=== PATIENT | female | born 1945 | race Caucasian/White ===

== ENCOUNTER 2017-06-05 16:23 | Observation (INO) | payer MEDICARE, BC ==
[2017-06-05] MEDS ORDERED: ANTIVERT 25 MG PO ONE (16:52)
[2017-06-05] MEDS ORDERED: ANTIVERT 25 MG ONE (16:59)
--- NOTE | 2017-06-05 16:59 | ERPHSYRPT ---
- History of Present Illness Time Seen by Provider: 06/05/17 16:46 Source: patient Exam Limitations: no limitations Patient Subjective Stated Complaint: pt states 2 days ago she began having dizziness. states she has had this before at times. worse today. dizzy from side to side. better with head in dependent position. Triage Nursing Assessment: pt pink, warm, dry. pt able to transfer to Er cot without difficulty. pupils perrl. pt speach wnl. Physician History: 71-year-old white female arrives with complaint of ringing in her ears vertigo symptoms worse with turning her head symptoms going on for 2 days. Patient states it began after having tooth removed by a dentist. Past medical history includes high blood pressure GERD. Past surgical history includes CABG and knee replacement carpal tunnel. Timing/Duration: day(s) (2 days) Severity: moderate Modifying Factors: Improves With: movement (symptoms much worse after moving her head). Worsens With: eating, immobilization, medication, rest, acetaminophen, ibuprofen, nothing Associated Symptoms: other (Dizziness, vertigo, tinnitus), No nausea, No vomiting, No abdominal pain, No shortness of breath, No heartburn, No diaphoresis, No cough, No chills, No chest pain, No fever, No headaches, No loss of appetite, No malaise, No rash, No syncope, No seizure, No weakness Allergies/Adverse Reactions: tetracycline [Tetracycline] Allergy (Verified 06/05/17 16:44) ITCH, BURN Home Medications: Amlodipine Besylate 5 mg [Norvasc 5 mg] 5 mg PO DAILY 06/05/17 [History] Donepezil HCl 10 mg [Aricept 10 MG] 10 mg PO DAILY 06/05/17 [History] Famotidine 20 mg [Pepcid 20 MG] 20 mg PO BID 06/05/17 [History] Metoprolol Succinate 50 mg [Toprol Xl 50 MG] 50 mg PO BID 06/05/17 [ History] Simvastatin 20Mg [Zocor 20Mg] 20 mg PO DAILY 06/05/17 [History] Venlafaxine HCl [Effexor] 150 mg PO DAILY 06/05/17 [History] Hx Tetanus, Diphtheria Vaccination/Date Given: Yes (unknown) Hx Influenza Vaccination/Date Given: Yes Hx Pneumococcal Vaccination/Date Given: No Immunizations Up to Date: Yes - Review of Systems Constitutional: No Fever, No Chills Eyes: No Symptoms, No Discharge, No Eye Pain, No Eye Redness, No Itchy, No Photophobia, No Tearing, No Foreign Body Sensation Ears, Nose, & Throat: Tinnitus, No Ear Pain, No Ear Discharge, No Hearing Changes, No Nose Pain, No Nose Congestion, No Nose Discharge, No Sinus Drainage , No Epistaxis, No Mouth Pain, No Mouth Swelling, No Loose Teeth, No Throat Pain , No Throat Swelling, No Hoarse, No Painful Swallowing, No Snoring, No Stridor Respiratory: No Cough, No Dyspnea Cardiac: No Chest Pain, No Edema, No Syncope Abdominal/Gastrointestinal: No Abdominal Pain, No Nausea, No Vomiting, No Diarrhea Genitourinary Symptoms: No Dysuria Musculoskeletal: No Back Pain, No Neck Pain Skin: No Rash Neurological: Dizziness, Vertigo, No Focal Weakness, No Gait Changes, No Headache, No Irritability, No Lethargy, No Paralysis, No Parasthesia, No Seizure , No Sensory Changes, No Speech Changes, No Tics, No Tremors Psychological: No Symptoms Endocrine: No Symptoms All Other Systems: Reviewed and Negative - Past Medical History Pertinent Past Medical History: Yes Cardiac History: Coronary Artery Disease, High Cholesterol, Hypertension GI Medical History: GERD - Past Surgical History Past Surgical History: Yes Cardiac: CABG Musculoskeletal: Joint Replacement Other Surgical History: KNEE REPLACEMENT, CARPEL TUNNEL - Social History Smoking Status: Never smoker Exposure to second hand smoke: No Drug Use: none Patient Lives Alone: No - Female History Hx Now: No - Nursing Vital Signs Nursing Vital Signs: Initial Vital Signs Temperature 98.3 F 06/05/17 16:37 Pulse Rate 68 06/05/17 16:37 Respiratory Rate 18 06/05/17 16:37 Blood Pressure 184/87 06/05/17 16:37 O2 Sat by Pulse Oximetry 99 06/05/17 16:37 Pain Scale Pain Intensity 0 - Physical Exam General Appearance: mild distress Eye Exam: PERRL/EOMI, eyes nml inspection, other (fundi are unremarkable) Ears, Nose, Throat Exam: normal ENT inspection, TMs normal, pharynx normal, moist mucous membranes Neck Exam: normal inspection, non-tender, supple, full range of motion Respiratory Exam: normal breath sounds, lungs clear, No respiratory distress Cardiovascular Exam: regular rate/rhythm, normal heart sounds, normal peripheral pulses Gastrointestinal/Abdomen Exam: soft, normal bowel sounds, No tenderness, No mass Back Exam: normal inspection, normal range of motion, No CVA tenderness, No vertebral tenderness Extremity Exam: normal inspection, normal range of motion, pelvis stable Neurologic Exam: alert, oriented x 3, cooperative, normal mood/affect, nml cerebellar function, nml station & gait, sensation nml, other (patient alert, oriented 3, cranial nerves II through XII< DTRs symmetrical 2 over 4, Eileen Coma Scale is 15, speech is normal, no facial droops, aircraft air conditioning mechanic equal symmetrical 5 over 5, normal finger to nose sensation intact to all extremities), No motor deficits SpO2 Interpretation: normal (99%) SpO2: 99 Oxygen Delivery: Room Air - Course Nursing assessment & vital signs reviewed: Yes EKG Interpreted by Me: RATE (58 bpm), Sinus Rhythm, NORMAL AXIS, Other (EKG: Sinus rhythm, 58 bpm, normal axis, no acute ST or T ave changes noted. Compared to July 21, 2012) - CT Exams Head CT Interpretation: Tele-radiologist Report (head CT: Impression: 1 evaluation moderately limited by patient motion. No evidence of acute intracranial hemorrhage or territorial infarction. 2. Mildly increased density in the basilar artery appears similar to prior scan of August 05, 2010, an acute thrombus is considered less likely . Clinical correlation recommended) Ordered Tests: Active Orders 24 hr Category Date Time Status Accucheck STAT Care 06/05/17 16:52 Active EKG-ER Only STAT Care 06/05/17 16:52 Active Orthostatic Vital Signs STAT Care 06/05/17 16:52 Active HEAD WITHOUT CONTRAST [CT] Stat Exams 06/05/17 16:52 Taken BMP Stat Lab 06/05/17 17:05 Completed CBC W DIFF Stat Lab 06/05/17 17:05 Completed Transfer Order Routine Transfer 06/05/17 Ordered Medication Summary Discontinued Medications Generic Name Dose Route Start Last Admin Trade Name Freq PRN Reason Stop Dose Admin Aspirin 162 mg 06/05/17 18:27 06/05/17 18:32 Baby Aspirin 81 Mg Chew PO 06/05/17 18:28 162 mg STAT ONE Administration Aspirin Confirm 06/05/17 18:30 Baby Aspirin 81 Mg Chew Administered 06/05/17 18:31 Dose 162 mg .ROUTE .STK-MED ONE Meclizine HCl 25 mg 06/05/17 16:52 06/05/17 17:01 Antivert 25 Mg PO 06/05/17 16:53 25 mg STAT ONE Administration Meclizine HCl Confirm 06/05/17 16:59 Antivert 25 Mg Administered 06/05/17 17:00 Dose 25 mg .ROUTE .STK-MED ONE Metoprolol Succinate 50 mg 06/05/17 18:26 06/05/17 18:33 Toprol Xl 50 Mg PO 06/05/17 18:27 Not Given DAILY STA Metoprolol Succinate 50 mg 06/05/17 18:31 06/05/17 18:32 Toprol-Xl 25mg Tablets PO 06/05/17 18:32 50 mg STAT ONE Administration Metoprolol Succinate Confirm 06/05/17 18:30 Toprol-Xl 25mg Tablets Administered 06/05/17 18:31 Dose 50 mg .ROUTE .STK-MED ONE Lab/Rad Data: Laboratory Result Diagrams 06/05/17 17:05 06/05/17 17:05 Laboratory Results 06/05/17 06/05/17 Range/Units 17:05 17:05 WBC 7.7 (4.0-10.5) K/mm3 RBC 5.11 (4.1-5.4) M/mm3 Hgb 14.8 (12.0-16.0) gm/dl Hct 47.1 H (35-47) % MCV 92.2 (78-100) fl MCH 29.0 (26-32) pg MCHC 31.4 L (32-36) g/dl RDW 14.5 H (11.5-14.0) % Plt Count 185 (150-450) K/mm3 MPV 11.5 H (6-9.5) fl Gran % 72.9 H (36.0-66.0) % Lymphocytes % 19.1 L (24.0-44.0) % Monocytes % 7.5 (0.0-12.0) % Eosinophils % 0.4 (0.00-5.0) % Basophils % 0.1 (0.0-0.4) % Basophils # 0.01 (0-0.4) Sodium 144 (136-145) mEq/L Potassium 3.8 (3.5-5.1) mEq/L Chloride 108 H (98-107) mEq/L Carbon Dioxide 27.6 (21-32) mEq/L Anion Gap 12.4 (5-15) MEQ/L BUN 13 (9-20) mg/dL Creatinine 1.21 (0.55-1.30) mg/dl Estimated GFR 46 ML/MIN Glucose 147 H (70-110) MG/DL Calcium 9.5 (8.5-10.1) mg/dL - Progress Progress: improved Progress Note: 06/05/17 16:58 71-year-old white female arrives with complaint of dizziness vertigo with tinnitus she feels like her head is full water when she turns her head symptoms going on for 2 days she states that this was preceded by some dental surgery Patient has not had a fever no vomiting no diarrhea. Patient with normal neurologic examination. Will obtain head CT CBC BMP EKG. Will give patient Antivert 25 mg orally. 06/05/17 18:20 Patient feeling better with Antivert CT of the head shows no evidence of acute intracranial hemorrhage or territorial infarction There is mild increased density in the basilar artery which appears similar to prior scan of August 05, 2010 and acute thrombus is considered less likely. I've discussed the patient's case with Dr. Mendez who is covering for Dr. Pickett. We will go ahead and place patient on aspirin 162 mg daily. Will continue on Antivert patient have plenty of fluids. She is to follow-up with Dr. Pickett. 06/05/17 18:27 The patient informs me that she has not taken her blood pressure medicines this morning She is on amlodipine and Toprol-XL 50 Will give her Toprol-XL 50 mg Will give patient 2 baby aspirin Expect patient to be discharged with Antivert she is to take her blood pressure medications as prescribed 06/05/17 18:46 Patient now tells the nurse that she has not been taking her Effexor for 2 days either. Patient was given 50 mg Toprol-XL. I've discussed the case with Dr. Mendez. Will go ahead and place patient on observation telemetry. Will leave patient on Toprol-XL 50 which she was given in the emergency room already. Will also write for Effexor 150 mg orally daily. Will obtain serial neurologic checks - Departure Time of Disposition: 18:28 Departure Disposition: Observation Clinical Impression: Vertigo Hypertension Qualifiers: Hypertension type: unspecified Qualified Code(s): I10 - Essential (primary) hypertension Condition: Fair Critical Care Time: No Referrals: DREW PERKINS [Primary Care Provider] -
[2017-06-05 17:12] LABS: BASOPHIL % 0.1 % (0.0-0.4); Eosinophil % 0.4 % (0.00-5.0); Granulocytes % 72.9 % (36.0-66.0); Lymphocytes % 19.1 % (24.0-44.0); Mean Cell Volume 92.2 fl (78-100); Mean Platelet Volume 11.5 fl (6-9.5); Monocytes % 7.5 % (0.0-12.0); Platelet Count 185 K/mm3 (150-450); Red Blood Count 5.11 M/mm3 (4.1-5.4); Red Cell Distribution Width 14.5 % (11.5-14.0); White Blood Count 7.7 K/mm3 (4.0-10.5)
[2017-06-05 17:35] LABS: ANION GAP 12.4 MEQ/L (5-15); Carbon Dioxide 27.6 mEq/L (21-32); Potassium 3.8 mEq/L (3.5-5.1)
[2017-06-05] MEDS ORDERED: Toprol Xl 50 MG PO STA (18:26)
[2017-06-05] MEDS ORDERED: BABY ASPIRIN 81 MG CHEW PO ONE (18:27)
[2017-06-05] MEDS ORDERED: BABY ASPIRIN 81 MG CHEW ONE (18:30)
[2017-06-05] MEDS ORDERED: Toprol-Xl 25MG Tablets ONE (18:30)
[2017-06-05] MEDS ORDERED: Toprol-Xl 25MG Tablets PO ONE (18:31)
[2017-06-05] MEDS: Toprol Xl 50 MG PO SCH (21:54)
--- NOTE | 2017-06-05 22:54 | XRAY ---
Indication: Severe vertigo. Multiple contiguous axial images obtained through the head without contrast. Comparison: August 05, 2010. Several images especially through the base of the brain degraded by motion artifact. Age-appropriate global atrophy and mild periventricular degenerative micro-ischemia bilaterally. No gross acute intracranial hemorrhage, abnormal extra axial fluid collection, or mass effect. Fourth ventricle is midline without hydrocephalus. Bony calvarium intact. Visualized paranasal sinuses and mastoid air cells clear. Impression: Motion artifact. Nonacute senile brain. Comment: Preliminary interpretation was made by [facility]. No discrepancy. CTDI 71.08
[2017-06-06 06:16] LABS: BASOPHIL % 0.1 % (0.0-0.4); Eosinophil % 1.1 % (0.00-5.0); Granulocytes % 59.2 % (36.0-66.0); Lymphocytes % 28.4 % (24.0-44.0); Mean Cell Volume 92.6 fl (78-100); Mean Corpuscular Hemoglobin 29.1 pg (26-32); Mean Platelet Volume 11.6 fl (6-9.5); Monocytes % 11.2 % (0.0-12.0); Platelet Count 172 K/mm3 (150-450); Red Blood Count 5.02 M/mm3 (4.1-5.4); Red Cell Distribution Width 14.6 % (11.5-14.0); White Blood Count 7.6 K/mm3 (4.0-10.5)
[2017-06-06 06:56] LABS: ALBUMIN 3.4 g/dL (3.4-5.0); ANION GAP 10.3 MEQ/L (5-15); BILIRUBIN,TOTAL 0.5 mg/dL (0.2-1.0); Carbon Dioxide 29.9 mEq/L (21-32); Potassium 3.9 mEq/L (3.5-5.1); Total Protein 6.8 gm/dL (6.4-8.2)
[2017-06-06] MEDS ORDERED: Effexor XR 75 MG PO SCH (10:00)
[2017-06-06] MEDS ORDERED: ECOTRIN 81 MG PO SCH (10:00)
[2017-06-06] MEDS: Toprol Xl 50 MG PO SCH (10:16)
[2017-06-06 11:17] VITALS: BP 153/85; PULSE 71; O2SAT 95
--- NOTE | 2017-06-06 13:25 | PCM.SSS ---
History of Present Illness - Chief Complaint Chief Complaint: dizziness. HTN. History of Present Illness: is a 71 year old female who came to ER c/o 2d of vertigo and tinnitus. It started immediately after she had a tooth extracted surgically. She states this has happened to her before after she had some pain medicine. Hx CAD with CABG 15 years ago. In the ER her BP was noted to be in the 180s systolic. She had held her BP meds for at least 2 days and had not taken her amlodipine the day of admission. She had just been on the amlodipine a few weeks since seeing Dr. Rodas. CT head with nothing acute, one old finding. Now the dizziness has resolved. She has some occasional mild tinnitus. Otherwise feeling great. Denies ALMODOVAR, CP, or SOB. Her BP were 170s-180s systolic overnight. She received her amlodipine this morning and since has had 150s-160s systolic BP. Will d/c pt home, she is to check her BP. - Review of Systems Ears, Nose, & Throat: Tinnitus Neurological: Dizziness All Other Systems: Reviewed and Negative Medications & Allergies Home Medications: Home Medication List Donepezil HCl 10 mg [Aricept 10 MG] 10 mg PO DAILY 06/05/17 [History Confirmed 06/05/17] Famotidine 20 mg [Pepcid 20 MG] 20 mg PO BID 06/05/17 [History Confirmed 06/05/17] Metoprolol Succinate 50 mg [Toprol Xl 50 MG] 50 mg PO BID 06/05/17 [ History Confirmed 06/05/17] Simvastatin 20Mg [Zocor 20Mg] 20 mg PO DAILY 06/05/17 [History Confirmed 07/22] Venlafaxine HCl [Effexor] 150 mg PO DAILY 06/05/17 [History Confirmed 06/05/17] Amlodipine Besylate 5 mg [Norvasc 5 mg] 10 mg PO DAILY #30 tablet [Rx] Allergies/Adverse Reactions: Allergies Allergy/AdvReac Type Severity Reaction Status Date / Time tetracycline [Tetracycline] Allergy ITCH, BURN Verified 06/05/17 16:44 - Past Medical History Past Medical History: Yes ENT History: Cataracts Cardiac History: Coronary Artery Disease, High Cholesterol, Hypertension GI Medical History: GERD History: No Pertinent History Pyscho-Social History: Anxiety Reproductive Disorders: No Pertinent History, Menstrual Problems - Female History Hx Last Menstrual Period: hysterectomy Are you now?: No - Past Surgical History Past Surgical History: Yes Neuro Surgical History: No Pertinent History Cardiac History: CABG Genitourinary Surgical Hx: No Pertinent History Musculskeletal Surgical Hx: Joint Replacement Female Surgical History: Hysterectomy Other Surgical History: KNEE REPLACEMENT, CARPEL TUNNEL - Social History Smoking Status: Never smoker Exposure to second hand smoke: Yes Alcohol: None Drug Use: none - Physical Exam Vital Signs: Vital Signs - 24 hr Temp Pulse Resp BP Pulse Ox 06/06/17 11:16 98.4 F 71 16 153/85 95 06/06/17 06:55 98.3 F 54 L 16 134/64 96 06/06/17 03:52 98.2 F 57 L 20 170/78 96 06/05/17 23:55 99.9 F 74 16 168/83 97 06/05/17 20:36 97.5 F 75 16 188/85 96 06/05/17 19:04 99 06/05/17 18:45 71 18 177/103 97 06/05/17 17:56 70 18 183/90 97 06/05/17 17:13 68 18 168/86 97 06/05/17 16:37 98.3 F 68 18 184/87 99 General Appearance: no apparent distress, alert Neurologic Exam: oriented x 3, cooperative, day care home provider II-XII nml as tested Eye Exam: PERRL/EOMI, eyes nml inspection Ears, Nose, Throat Exam: pharynx normal, moist mucous membranes, other (L lower jaw with sutures in place, molar has been extracted) Neck Exam: normal inspection, non-tender, No lymphadenopathy Respiratory Exam: normal breath sounds, lungs clear, No crackles/rales, No rhonchi, No wheezing Cardiovascular Exam: regular rate/rhythm, normal heart sounds, No murmur Gastrointestinal/Abdomen Exam: soft, normal bowel sounds, No tenderness, No distention, No mass, No guarding, No rebound Back Exam: normal inspection Extremity Exam: No pedal edema, No swelling Skin Exam: normal color, warm, dry Results - Labs Lab/Micro Results: Lab Results-Last 24 Hours 06/06/17 06/06/17 Range/Units 06:05 06:05 WBC 7.6 (4.0-10.5) K/mm3 RBC 5.02 (4.1-5.4) M/mm3 Hgb 14.6 (12.0-16.0) gm/dl Hct 46.5 (35-47) % MCV 92.6 (78-100) fl MCH 29.1 (26-32) pg MCHC 31.4 L (32-36) g/dl RDW 14.6 H (11.5-14.0) % Plt Count 172 (150-450) K/mm3 MPV 11.6 H (6-9.5) fl Gran % 59.2 (36.0-66.0) % Lymphocytes % 28.4 (24.0-44.0) % Monocytes % 11.2 (0.0-12.0) % Eosinophils % 1.1 (0.00-5.0) % Basophils % 0.1 (0.0-0.4) % Basophils # 0.01 (0-0.4) Sodium 144 (136-145) mEq/L Potassium 3.9 (3.5-5.1) mEq/L Chloride 108 H (98-107) mEq/L Carbon Dioxide 29.9 (21-32) mEq/L Anion Gap 10.3 (5-15) MEQ/L BUN 16 (9-20) mg/dL Creatinine 1.21 (0.55-1.30) mg/dl Estimated GFR 46 ML/MIN Glucose 95 (70-110) MG/DL Calcium 9.5 (8.5-10.1) mg/dL Total Bilirubin 0.50 (0.2-1.0) mg/dL AST 17 (15-37) U/L ALT 13 (12-78) U/L Alkaline Phosphatase 98 (46-116) U/L Serum Total Protein 6.8 (6.4-8.2) gm/dL Albumin 3.4 (3.4-5.0) g/dL Assessment/Plan (1) Vertigo Current Visit: Yes Status: Resolved Assessment & Plan: Typical of BPPV. resolved. Code(s): R42 - DIZZINESS AND GIDDINESS (2) Hypertensive urgency Current Visit: Yes Status: Resolved Assessment & Plan: The BP are better after restarting her amlodipine and toprol. She is asymptomatic. Code(s): I16.0 - HYPERTENSIVE URGENCY (3) Hypertension Current Visit: Yes Status: Acute Qualifiers: Hypertension type: unspecified Qualified Code(s): I10 - Essential (primary ) hypertension Assessment & Plan: Increasing home amlodipine to 10mg daily. If her BP is over 180 systolic or > 110 diastolic she should call her physician or go to the ER. Code(s): I10 - ESSENTIAL (PRIMARY) HYPERTENSION (4) CAD (coronary artery disease) Current Visit: Yes Status: Acute Qualifiers: Coronary Disease-Associated Artery/Lesion type: bypass graft [place] vs. transplanted heart: lummi heart Associated angina: without angina Qualified Code(s): I25.810 - Atherosclerosis of coronary artery bypass graft(s) without angina pectoris Code(s): I25.10 - ATHSCL HEART DISEASE OF [place] CORONARY ARTERY W/O [facility] Summary - Hospital Course Hospital Course: Pt admitted wiht vertigo and hypertensive urgency ;had been off her meds for dental extraction. CT head without acute findings. Next morning she is feeling fine aside from occasional mild tinnitus. BP have come down with restarting her home meds. She will go home with instructions on checking her BP. can start HCTZ in addition to her amlodipine and toprol if warranted. - Vitals & Intake/Output Vital Signs: Vital Signs Temperature 98.4 F 06/06/17 11:16 Pulse Rate 71 06/06/17 11:16 Respiratory Rate 16 06/06/17 11:16 Blood Pressure 153/85 06/06/17 11:16 O2 Sat by Pulse Oximetry 95 06/06/17 11:16 Intake & Output: Intake & Output 06/04/17 06/05/17 06/06/17 06/07/17 11:59 11:59 11:59 11:59 Intake Total 1420 600 Output Total 1100 800 Balance 320 -200 Weight 84.085 kg - Lab Result Diagrams: 06/06/17 06:05 06/06/17 06:05 Lab Results-Last 24 Hrs: Lab Results-Last 24 Hours 06/06/17 06/06/17 Range/Units 06:05 06:05 WBC 7.6 (4.0-10.5) K/mm3 RBC 5.02 (4.1-5.4) M/mm3 Hgb 14.6 (12.0-16.0) gm/dl Hct 46.5 (35-47) % MCV 92.6 (78-100) fl MCH 29.1 (26-32) pg MCHC 31.4 L (32-36) g/dl RDW 14.6 H (11.5-14.0) % Plt Count 172 (150-450) K/mm3 MPV 11.6 H (6-9.5) fl Gran % 59.2 (36.0-66.0) % Lymphocytes % 28.4 (24.0-44.0) % Monocytes % 11.2 (0.0-12.0) % Eosinophils % 1.1 (0.00-5.0) % Basophils % 0.1 (0.0-0.4) % Basophils # 0.01 (0-0.4) Sodium 144 (136-145) mEq/L Potassium 3.9 (3.5-5.1) mEq/L Chloride 108 H (98-107) mEq/L Carbon Dioxide 29.9 (21-32) mEq/L Anion Gap 10.3 (5-15) MEQ/L BUN 16 (9-20) mg/dL Creatinine 1.21 (0.55-1.30) mg/dl Estimated GFR 46 ML/MIN Glucose 95 (70-110) MG/DL Calcium 9.5 (8.5-10.1) mg/dL Total Bilirubin 0.50 (0.2-1.0) mg/dL AST 17 (15-37) U/L ALT 13 (12-78) U/L Alkaline Phosphatase 98 (46-116) U/L Serum Total Protein 6.8 (6.4-8.2) gm/dL Albumin 3.4 (3.4-5.0) g/dL - Discharge Disposition: Home, Self-Care Condition: Stable Prescriptions: Continue Simvastatin 20Mg [Zocor 20Mg] 20 mg PO DAILY Metoprolol Succinate 50 mg [Toprol Xl 50 MG] 50 mg PO BID Donepezil HCl 10 mg [Aricept 10 MG] 10 mg PO DAILY Famotidine 20 mg [Pepcid 20 MG] 20 mg PO BID Venlafaxine HCl [Effexor] 150 mg PO DAILY Changed Amlodipine Besylate 5 mg [Norvasc 5 mg] 10 mg PO DAILY #30 tablet Additional Instructions: Check blood pressures twice a day. Continue taking amlodipine once daily (in the morning is fine) and metoprolol twice daily. I have increased your amlodipine dose, so I will not add any extra medicine at this time. For any top pressure over 180 or bottom pressure over 110, go to the ER. Take your medicine as follows: Amlodipine 10mg - take in the morning Donepezil 10mg (Aricept) - take in the morning Famotidine 20mg (stomach pill) - take one in the morning, one in the evening OR at supper time Metoprolol 50mg (Toprol) - take one in the morning, on in the evening OR at supper time Simvastatin 20mg - take this one at night, before bed Effexor 150mg - take in the morning Follow up with: DREW PERKINS [Primary Care Provider] -
== END 2017-06-06 13:50 | disposition home or self-care (01) ==
LOC: ED 16:23 → MED SURG 19:45
PROVIDERS: ADMIT Family Medicine; ATTEND Family Medicine
DX: R42 Dizziness and giddiness (principal); I16.0 Hypertensive urgency; I25.810 Atherosclerosis of coronary artery bypass graft(s) without angina pectoris; Z79.899 Other long term (current) drug therapy; K21.9 Gastro-esophageal reflux disease without esophagitis; F41.9 Anxiety disorder, unspecified
CPT/HCPCS: 36415; 70450; 80048; 80053; 82962; 85025; 93005; 93268; 99285; G0378; A9270-GY

== ENCOUNTER 2022-03-21 05:58 | Day surgery (SDC) | payer MEDICARE, BC ==
[2022-03-21] MEDS ORDERED: Lactated Ringers 1,000 ML IV ONE (06:12)
[2022-03-21] MEDS ORDERED: Lactated Ringers 1,000 ML IV SCH (06:30)
[2022-03-21] MEDS ORDERED: DIPRIVAN 200 MG/20 ML IV ONE (07:38)
[2022-03-21] MEDS ORDERED: ATROPINE SULFATE 1MG ONE (08:06)
--- NOTE | 2022-03-21 09:11 | OP ---
SURGERY DATE: 03/21/2022 SURGERY TIME: 739 PREOPERATIVE DIAGNOSIS: 1. RECTAL BLEEDING. POSTOPERATIVE DIAGNOSIS: 1. NSAID GASTROPATHY. 2. 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 PROCEDURE: 1. Esophagogastroduodenoscopy. 2. Colonoscopy. SURGEON: Dr. Serrano. ANESTHESIA: Given by the Anesthesia Department. BRIEF HISTORY: The patient is a 76 y/o WF who reports 3 days of rectal bleeding. She reports it was bright red initially and then it became more of a current jelly-type appearance. The patient reports she previously had colonoscopy many years ago and a Cologuard test 2 years ago. The patient does take aspirin on a regular basis. She reports no abdominal pain otherwise or any other new medical problems. The patient is felt to need to have endoscopic evaluation. She was appraised of the risks of the procedure including the risk of perforation, phlebitis, untoward reaction to medication, bleeding, and missed lesions. The patient verbalized her understanding and desired to have the procedures performed. DESCRIPTION OF PROCEDURE: The patient was given the medications by the Anesthesia Department. She had continuous pulse oximetry, ECG monitoring, and intermittent BP monitoring during the examination. She was placed in the left lateral decubitus position. A bite block was placed and the flexible Olympus gastroscope was used to intubate the oropharynx. A view of the larynx was obtained and appeared to be normal. The scope was easily introduced in the esophagus which appeared to be normal to the point of a small hiatal hernia. The scope was introduced into the stomach where normal gastric rugal folds were seen. These distended nicely with insufflation of air. There was noted a small amount of food products left in the stomach. The scope was passed along the greater curvature of the stomach to the antrum where we noted a fairly large amount of NSAID type gastropathy appearance to the stomach. The pylorus was encountered and intubated. The duodenum was inspected and found to be essentially normal. The scope was withdrawn towards the stomach. A retroflex view was obtained of the lesser curvature, fundus, and cardia regions of the stomach and these appeared to be essentially normal. The scope was then removed from the patient. Next, a digital rectal exam was performed and revealed normal anal sphincter tone and no masses. The flexible Olympus pediatric colonoscope was used to intubate the rectum. A view of the colon was developed sequentially to the cecum. Upon insertion and withdrawal, was noted a fair amount of liquid and particulate matter in the stool. We did note one particular area that appeared to be inflamed and was likely an area of bleeding, but no bleeding was currently noted. No other polyps or other mucosal lesions being encountered, the scope was removed from the patient who tolerated the procedure well and was sent back to OP recovery in good condition. Again, the prep was noted to be fair.
[2022-03-21 09:52] VITALS: BP 158/68; PULSE 68
[2022-03-21 09:55] VITALS: O2SAT 97
== END 2022-03-21 09:45 | disposition home or self-care (01) ==
LOC: SDC 05:58
PROVIDERS: ATTEND Family Medicine
DX: K57.30 Diverticulosis of large intestine without perforation or abscess without bleeding (principal); K62.5 Hemorrhage of anus and rectum; K31.9 Disease of stomach and duodenum, unspecified
CPT/HCPCS: 99100; J0461; J2704

== ENCOUNTER 2022-12-30 14:00 | Emergency (ER) | payer MEDICARE, BC ==
[2022-12-30 15:08] LABS: Appearance Clear (Clear); Bacteria None Seen /HPF (None Seen); Bilirubin Negative (Negative); Blood Negative (Negative); Epithelial Cells Rare /HPF (None Seen); Glucose, Urine Negative (Negative); Hyaline Casts NONE SEEN /LPF (0-2); Ketones Negative (Negative); Leukocyte Esterase Negative (Negative); Nitrite Negative (Negative); Ph 5.5 (4.6-8.0); Protein,Urine Dip Negative (Negative); RBC 0-2 /HPF (0-5); Specific Gravity 1.025 (1.005-1.030); WBC 0-2 /HPF (0-5)
[2022-12-30 15:09] LABS: ADD URINE CULTURE? NO (NO)
[2022-12-30 15:15] VITALS: BP 142/65
--- NOTE | 2022-12-30 16:35 | XRAY ---
Indication: Low back pain. No known injury. Multiple contiguous axial images obtained through the lumbar spine. Sagittal and coronal reformatted images obtained. Comparison: March 12, 2022 Osseous structures remain demineralized. Stable minimal multilevel endplate spurring, mild broad-based L5-S1 disc bulge, and mild bilateral L4-S1 degenerative facet hypertrophy. No large disc herniation or canal stenosis. Sagittal and coronal reformatted images again demonstrate normal lumbar alignment with 2 mm L5 anterolisthesis. Visualized noncontrasted soft tissues again demonstrates scattered aortoiliac calcifications. Impression: Stable multilevel degenerative spondylosis, minimal grade 1 L5 listhesis, and arteriosclerotic disease. No new/acute findings.
[2022-12-30 17:26] VITALS: PULSE 55
[2022-12-30 17:38] VITALS: O2SAT 97
[2022-12-30] MEDS ORDERED: DECADRON 10MG INJ. IM ONE (17:38)
--- NOTE | 2022-12-30 17:38 | ERPHSYRPT ---
- History of Present Illness Time Seen by Provider: 12/30/22 17:42 Source: patient Exam Limitations: no limitations Patient Subjective Stated Complaint: Pain in the lower medial back for 2 days Triage Nursing Assessment: Pt brought to the ER by her , hypertensive, bradycardic, rates pain as 9/10, began hurting Thursday and increasingly got worse and hasn't went away, denies injury, denies twisting, pulses normal, skin n/w/d, appears to be in moderate pain on movement but is more comfortable when laying Physician History: Patient is a 77-year-old female presents to our ED with her and daughter for evaluation of pain to her low back. Pain has been present for approximately 2 days. Pain rated 9 out of 10. Pain worse with movement and weightbearing. Pain improved with rest. No trauma no falls no injuries reported. No fever. No change in bowel bladder function. No recent back procedures. No saddle anesthesia. Patient denies history of the same. Pain is localized. No radiation. No involvement of the lower extremities. Patient voices no other complaints or concerns at this time. Portions of this note were created with voice recognition technology. There may be grammatical, spelling, punctuation or sound alike errors Timing/Duration: day(s) (2-day) Method of Injury: unknown Quality: aching Back Pain Location: lumbar spine Severity of Pain-Max: moderate Severity of Pain-Current: mild Modifying Factors: Improves With: movement Associated Symptoms: denies symptoms Previous symptoms: no prior history Allergies/Adverse Reactions: tetracycline [Tetracycline] Allergy (Intermediate, Verified 12/30/22 14:35) ITCH, BURN latex Allergy (Verified 12/30/22 14:35) Rash Home Medications: Donepezil HCl 10 mg [Aricept 10 MG] 10 mg PO DAILY 06/05/17 [History] Famotidine 20 mg [Pepcid 20 MG] 20 mg PO BID 06/05/17 [History] Metoprolol Succinate 50 mg [Toprol Xl 50 MG] 50 mg PO DAILY 06/05/17 [History] Venlafaxine HCl [Effexor] 150 mg PO DAILY 06/05/17 [History] Losartan Potassium 50 mg [Cozaar 50 MG] 50 mg PO BID 03/17/22 [History] Trazodone HCl 50 mg [Desyrel 50 mg] 100 mg PO HS 03/17/22 [History] Simvastatin 20Mg [Zocor 20Mg] 20 mg PO DAILY 12/30/22 [History] Hx Tetanus, Diphtheria Vaccination/Date Given: Yes (unknown) Hx Influenza Vaccination/Date Given: Yes Hx Pneumococcal Vaccination/Date Given: No Travel Risk - International Travel Have you traveled outside of the country in past 3 weeks: No - Coronavirus Screening Are you exhibiting any of the following symptoms?: No - Vaccine Status Have you recieved 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: [employer] - Vaccination Dates Date of 2cond Vaccination (if applicable): 2020 - Review of Systems Constitutional: No Symptoms, No Fever, No Chills Eyes: No Symptoms Ears, Nose, & Throat: No Symptoms Respiratory: No Symptoms, No Cough, No Dyspnea Cardiac: No Symptoms, No Chest Pain, No Edema, No Syncope Abdominal/Gastrointestinal: No Symptoms, No Abdominal Pain, No Nausea, No Vomiting, No Diarrhea Genitourinary Symptoms: No Symptoms, No Dysuria Musculoskeletal: No Symptoms, No Back Pain, No Neck Pain Skin: No Symptoms, No Rash Neurological: No Symptoms, No Dizziness, No Focal Weakness, No Sensory Changes Psychological: No Symptoms Endocrine: No Symptoms Hematologic/Lymphatic: No Symptoms Immunological/Allergic: No Symptoms All Other Systems: Reviewed and Negative - Past Medical History Pertinent Past Medical History: Yes Neurological History: No Pertinent History ENT History: Cataracts Cardiac History: Coronary Artery Disease, High Cholesterol, Hypertension Respiratory History: No Pertinent History Endocrine Medical History: No Pertinent History Musculoskeletal History: No Pertinent History GI Medical History: GERD History: No Pertinent History Psycho-Social History: Anxiety Female Reproductive Disorders: No Pertinent History, Menstrual Problems - Past Surgical History Past Surgical History: Yes Neuro Surgical History: No Pertinent History Cardiac: CABG Respiratory: No Pertinent History Gastrointestinal: No Pertinent History Genitourinary: No Pertinent History Musculoskeletal: Joint Replacement Female Surgical History: Hysterectomy Other Surgical History: LT KNEE REPLACEMENT, CARPEL TUNNEL - Social History Smoking Status: Never smoker Exposure to second hand smoke: Yes Drug Use: none Patient Lives Alone: No - Nursing Vital Signs Nursing Vital Signs: Initial Vital Signs Temperature 97.7 F 12/30/22 14:19 Pulse Rate 49 L 12/30/22 14:19 Blood Pressure 143/61 12/30/22 14:19 O2 Sat by Pulse Oximetry 98 12/30/22 14:19 Pain Scale Pain Intensity [] 9 Pain Intensity 2 - Physical Exam General Appearance: no apparent distress, alert Eye Exam: PERRL/EOMI, eyes nml inspection Neck Exam: normal inspection, non-tender, supple, full range of motion, No meningismus, No midline tenderness Respiratory Exam: normal breath sounds, lungs clear, No respiratory distress Cardiovascular Exam: regular rate/rhythm, normal heart sounds Gastrointestinal Exam: soft, No tenderness, No mass Back Exam: other (Tenderness to palpation at L5-S1. Overlying soft tissue intact. No signs of trauma) Extremity Exam: normal inspection, normal range of motion, No calf tenderness, No pedal edema Neurologic Exam: alert, oriented x 3, cooperative, barrel header II-XII nml as tested, normal mood/affect, nml station & gait, sensation nml, No motor deficits Skin Exam: normal color, warm, dry, No rash Lymphatic Exam: No adenopathy SpO2 Interpretation: normal SpO2: 97 O2 Delivery: Room Air - Course Nursing assessment & vital signs reviewed: Yes - CT Exams Lumbar Spine CT Interpretation: Tele-radiologist Report (Disc bulge, L5 anterolisthesis, aortoiliac calcifications) Ordered Tests: Active Orders 24 hr Category Date Time Status LUMBAR SPINE W/O [CT] Stat Exams 12/30/22 15:06 Completed UA W/RFX UR CULTURE Stat Lab 12/30/22 14:54 Completed Medication Summary Discontinued Medications Generic Name Dose Route Start Last Admin Trade Name Freq PRN Reason Stop Dose Admin Dexamethasone Sodium Phosphate 6 mg 12/30/22 17:38 Dexamethasone Sod Phosphate 10 Mg/Ml IM 12/30/22 17:39 STAT ONE Lab/Rad Data: Laboratory Results 12/30/22 Range/Units 14:54 Urine Color Yellow (Yellow) Urine Appearance Clear (Clear) Urine pH 5.5 (4.6-8.0) Ur Specific [place] 1.025 (1.005-1.030) Urine Protein Negative (Negative) Urine Glucose (UA) Negative (Negative) mg/dL Urine Ketones Negative (Negative) Urine Blood Negative (Negative) Urine Nitrite Negative (Negative) Urine Bilirubin Negative (Negative) Urine Urobilinogen 1.0 A (0.2) mg/dL Ur Leukocyte Esterase Negative (Negative) U Hyaline Cast (Auto) NONE SEEN (0-2) /LPF Urine Microscopic RBC 0-2 (0-5) /HPF Urine Microscopic WBC 0-2 (0-5) /HPF Ur Epithelial Cells Rare (None Seen) /HPF Urine Bacteria None Seen (None Seen) /HPF Urine Culture Reflexed NO (NO) - Progress Progress: improved Progress Note: Patient is 77-year-old female presents emergency department for evaluation of low back pain. Low back pain started approximately 2 days ago. Patient has tenderness right at L5-S1 junction. Pain at this area is worse when she moves. CT scan reveals disc bulge and low-grade anterolisthesis at this area. Some degenerative arthritis of the spine. Patient is on aspirin and Plavix. She was not given Toradol. Patient received a dose of Decadron. 4 [place] tabs were also provided. Patient will follow-up with her primary care doctor within 48 hours for reevaluation. Complexity of problem addressed is moderate, new diagnosis with uncertain prognosis No critical care time Complexity of data reviewed and analyzed is moderate. Urinalysis reviewed and analyzed. CT scan report reviewed and analyzed and clinically correlated. Risk of complication and risk of morbidity/mortality of patient management is moderate. Patient received 4 tabs of [place] for home. This was given versus prescription because the pharmacy in the area is now closed. Otherwise patient would have had a prescription We will discharge home. Plan of care established for shared decision making. Time spent to discharge patient is approximately 10 to 15 minutes. Vital stable. Patient will call her primary care doctor in the morning to schedule a follow-up for this Thursday. Daughter and at bedside. They voiced no other complaints or concerns at this time. Portions of this note were created with voice recognition technology. There may be grammatical, spelling, punctuation or sound alike errors 12/30/22 17:58 Counseled pt/family regarding: lab results, diagnosis, need for follow-up, rad results - Departure Departure Disposition: Home Clinical Impression: Lumbosacral strain, Arthritis of spine, Anterior listhesis, Bulging disc Condition: Stable Critical Care Time: No Referrals: LEILA SHANKAR MD [Primary Care Provider] - Follow up/PCP as directed Additional Instructions: Discharge/Care Plan POLLY ALLEN was seen on 12/30/22 in the Emergency Room. The patient was counseled regarding Diagnosis,Lab results, Imaging studies, need for follow up and when to return to the Emergency Room. Prescriptions given: Discharge Note I have spoken with the patient and/or caregivers. I have explained the patient's condition, diagnosis and treatment plan based on the information available to me at this time. I have answered the patient's and/or caregiver's questions and addressed any concerns. The patient and/or caregivers have as good understanding of the patient's diagnosis, condition and treatment plan as can be expected at this point. The vital signs have been stable. The patient's condition is stable and appropriate for discharge from the emergency department. The patient will pursue further outpatient evaluation with the primary care physician or other designated or consulting physician as outlined in the discharge instructions. The patient and/or caregivers are agreeable to this plan of care and follow-up instructions have been explained in detail. The patient and/or caregivers have received these instruction. The patient/and or caregivers are aware that any significant change in condition or worsening of symptoms should prompt an immediate return to this or the closest emergency department or call 911.
[2022-12-30] MEDS ORDERED: NORCO 5/325 MG PO ONE (17:40)
[2022-12-30] MEDS ORDERED: DECADRON 10MG INJ. ONE (17:43)
[2022-12-30] MEDS ORDERED: NORCO 5/325 MG ONE (18:05)
== END 2022-12-30 18:14 | disposition home or self-care (01) ==
LOC: ED 14:00
DX: S39.012A Strain of muscle, fascia and tendon of lower back, initial encounter (principal); M47.817 Spondylosis without myelopathy or radiculopathy, lumbosacral region; M43.16 Spondylolisthesis, lumbar region; M51.37 Other intervertebral disc degeneration, lumbosacral region; E78.5 Hyperlipidemia, unspecified; I10 Essential (primary) hypertension; Z79.899 Other long term (current) drug therapy
CPT/HCPCS: 72131; 81001; 96372; 99283; J1100; A9270-GY

== ENCOUNTER 2023-01-12 10:18 | Observation (INO) | payer MEDICARE, BC ==
[2023-01-12] MEDS ORDERED: PROTONIX 40 MG IV IV ONE ×2 (10:27→10:34)
[2023-01-12] MEDS ORDERED: Sodium Chloride 0.9% 1000 ML 1,000 ML IV STA (10:27)
[2023-01-12] MEDS ORDERED: Zofran 4 MG/2 ML VIAL IV ONE (10:27)
[2023-01-12] MEDS ORDERED: Sodium Chloride 0.9% 1000 ML 1,000 ML ONE (10:34)
[2023-01-12] MEDS ORDERED: Zofran 4 MG/2 ML VIAL ONE (10:34)
[2023-01-12 11:27] LABS: Absolute Neutrophil Ct (ANC) 4.63 x10^3/uL (1.4-6.9); BASOPHIL % 0.3 % (0.0-0.4); Basophil (Absolute #) 0.02 x10^3/uL (0-0.4); Eosinophil % 0.5 % (0.00-5.0); Eosinophil (Absolute #) 0.03 x10^3/uL (0-0.5); Hematocrit 40.8 % (35-47); Hemoglobin 12.9 g/dL (12.0-16.0); IMMATURE GRAN # 0.02 x10^3u/L (0.00-0.03); IMMATURE GRAN % 0.3 % (0.00-0.4); Lymphocyte (Absolute #) 0.99 x10^3/uL (1.0-4.6); Lymphocytes % 16.7 % (24.0-44.0); Mean Cell Volume 90.5 fL (78-100); Mean Corpuscular Hemoglobin 28.6 pg (26-32); Mean Corpuscular Hgb Concent. 31.6 g/dL (32-36); Mean Platelet Volume 11.2 fL (7.5-11.0); Monocyte (Absolute #) 0.24 x10^3/uL (0.0-1.3); Neutrophil % 78.2 % (36.0-66.0); Platelet Count 193 x10^3/uL (150-450); Red Blood Count 4.51 x10^6/uL (4.1-5.4); Red Cell Distribution Width 13.8 % (11.5-14.0); White Blood Count 5.9 x10^3/uL (4.0-10.5)
--- NOTE | 2023-01-12 11:31 | ERPHSYRPT ---
- History of Present Illness Historian: patient, other () Exam Limitations: no limitations Patient Subjective Stated Complaint: Pt c/o of vomiting since Thursday evening and beginning to have diarrhea since getting to the ER Triage Nursing Assessment: Pt brought to the ER by her , hypertensive, denies pain, pulses normal, skin n/w/d, pain with palpatation to the LUQ, has been taking small sips of fluids but unable to keep food down Physician History: 77 yo WF w N/V x 2 days. Pt has mild L sided abdominal pain which is sharp and wo radiation. She also has a mild cough/coryza but denies hematemesis/diarrhea/melena/hematochezia/dysuria/hematuria/chest pain/fever. PMH includes CAD/CABG/Stent. Timing/Duration: day(s) (2 days) Activities at Onset: rest Quality: sharpness Abdominal Pain Onset Location: LUQ Pain Radiation: no radiation Severity of Pain-Max: moderate Severity of Pain-Current: mild Modifying Factors: Improves With: nothing, vomiting Associated Symptoms: denies symptoms, vomiting Previous symptoms: no prior history Allergies/Adverse Reactions: tetracycline [Tetracycline] Allergy (Intermediate, Verified 01/12/23 11:08) ITCH, BURN latex Allergy (Verified 01/12/23 11:08) Rash Home Medications: Donepezil HCl 10 mg [Aricept 10 MG] 10 mg PO DAILY 06/05/17 [History] Famotidine 20 mg [Pepcid 20 MG] 20 mg PO BID 06/05/17 [History] Metoprolol Succinate 50 mg [Toprol Xl 50 MG] 50 mg PO DAILY 06/05/17 [History] Venlafaxine HCl [Effexor] 150 mg PO DAILY 06/05/17 [History] Losartan Potassium 50 mg [Cozaar 50 MG] 50 mg PO BID 03/17/22 [History] Trazodone HCl 50 mg [Desyrel 50 mg] 100 mg PO HS 03/17/22 [History] Simvastatin 20Mg [Zocor 20Mg] 20 mg PO DAILY 12/30/22 [History] Hx Tetanus, Diphtheria Vaccination/Date Given: Yes (unknown) Hx Influenza Vaccination/Date Given: Yes Hx Pneumococcal Vaccination/Date Given: No Travel Risk - International Travel Have you traveled outside of the country in past 3 weeks: No - Coronavirus Screening Are you exhibiting any of the following symptoms?: Yes Symptoms: Vomiting/Diarrhea Close contact with a COVID-19 positive Pt in past 14-21 Days: No - Vaccine Status Have you recieved a Covid-19 vaccination: Yes Hvac Service Manager: Moderna - Vaccination Dates Date of 2cond Vaccination (if applicable): 2020 - Review of Systems Constitutional: No Symptoms, Fatigue, Lethargy, Malaise Eyes: No Symptoms, Foreign Body Sensation Ears, Nose, & Throat: Nose Discharge Respiratory: No Symptoms, Cough Cardiac: No Symptoms Abdominal/Gastrointestinal: No Symptoms, Abdominal Pain, Nausea, Vomiting Genitourinary Symptoms: No Symptoms Musculoskeletal: No Symptoms Skin: No Symptoms Neurological: No Symptoms Psychological: No Symptoms Endocrine: No Symptoms Hematologic/Lymphatic: No Symptoms Immunological/Allergic: No Symptoms - Past Medical History Pertinent Past Medical History: Yes Neurological History: No Pertinent History ENT History: Cataracts Cardiac History: Coronary Artery Disease, High Cholesterol, Hypertension Respiratory History: No Pertinent History Endocrine Medical History: No Pertinent History Musculoskeletal History: No Pertinent History GI Medical History: GERD History: No Pertinent History Psycho-Social History: Anxiety Female Reproductive Disorders: No Pertinent History, Menstrual Problems - Past Surgical History Past Surgical History: Yes Neuro Surgical History: No Pertinent History Cardiac: CABG Respiratory: No Pertinent History Gastrointestinal: No Pertinent History Genitourinary: No Pertinent History Musculoskeletal: Joint Replacement Female Surgical History: Hysterectomy Other Surgical History: LT KNEE REPLACEMENT, CARPEL TUNNEL - Social History Smoking Status: Never smoker Exposure to second hand smoke: Yes Drug Use: none Patient Lives Alone: No - Nursing Vital Signs Nursing Vital Signs: Initial Vital Signs Temperature 96.2 F 01/12/23 10:27 Pulse Rate 42 L 01/12/23 10:27 Blood Pressure 152/83 01/12/23 10:27 O2 Sat by Pulse Oximetry 98 01/12/23 10:27 Pain Scale Pain Intensity 0 Hypertensive/bradycardic - Physical Exam General Appearance: no apparent distress Eye Exam: PERRL/EOMI, eyes nml inspection Ears, Nose, Throat Exam: normal ENT inspection, TMs normal, pharynx normal, moist mucous membranes Neck Exam: normal inspection, non-tender, supple, full range of motion, No meningismus, No mass, No Brudzinski, No Kernig's, No carotid bruit Respiratory Exam: normal breath sounds, lungs clear, airway intact Cardiovascular Exam: bradycardia (Bradycardic w 2/6 MARCIAL) Gastrointestinal/Abdomen Exam: soft, normal bowel sounds, No tenderness Back Exam: normal inspection, normal range of motion, No CVA tenderness, No vertebral tenderness Extremity Exam: normal inspection, normal range of motion Neurologic Exam: alert, oriented x 3, cooperative, commercial lending assistant II-XII nml as tested, normal mood/affect, nml station & gait, sensation nml Skin Exam: normal color, warm, dry Lymphatic Exam: No adenopathy SpO2 Interpretation: normal SpO2: 98 O2 Delivery: Room Air - Course Nursing assessment & vital signs reviewed: Yes EKG Interpreted by Me: RATE (Sinus kylah/Prolonged QT/Nonspecific ST changes/IVCD) - CT Exams Abdomen/Pelvis CT Interpretation: Tele-radiologist Report (CT av-hzvrxq-kxjkznprzjsucl/L1 lytic lesion/R hepatic focal lesion) Ordered Tests: Active Orders 24 hr Category Date Time Status Code Status Order ROUTINE Care 01/12/23 14:38 Active EKG-ER Only STAT Care 01/12/23 10:27 Active IV Care Q6H Care 01/12/23 14:38 Active IV Insertion STAT Care 01/12/23 10:[address] in Observation ROUTINE Care 01/12/23 14:38 Active Vital Signs Q4H Care 01/12/23 14:38 Active NPO Diet 01/12/23 14:39 Active ABDOMEN AND PELVIS W CONTRAST [CT] Stat Exams 01/12/23 11:53 Completed AMYLASE Stat Lab 01/12/23 11:24 Completed CBC W DIFF AM.LAB Lab 01/13/23 04:00 Ordered CBC W DIFF Stat Lab 01/12/23 11:24 Completed CMP AM.LAB Lab 01/13/23 04:00 Ordered CMP Stat Lab 01/12/23 11:24 Completed Lactic Acid Stat Lab 01/12/23 11:32 Completed TROPONIN Q4H Lab 01/12/23 11:24 Completed TROPONIN Q4H Lab 01/12/23 14:24 Completed TROPONIN Q4H Lab 01/12/23 18:30 Ordered UA W/RFX UR CULTURE Stat Lab 01/12/23 13:50 Completed Transfer Order Routine Transfer 01/12/23 Ordered Medication Summary Generic Name Dose Route Start Last Admin Trade Name Bhaveshq PRN Reason Stop Dose Admin Enoxaparin Sodium 40 mg 01/13/23 10:00 01/12/23 14:55 Enoxaparin Sodium 40 Mg/0.4 Ml Syringe SQ 02/12/23 09:59 40 mg DAILY ANALISA Administration Levofloxacin/Dextrose 750 mg in 150 mls @ 100 mls/hr 01/12/23 14:37 Levofloxacin 750mg/150ml D5w IV 01/12/23 16:06 STAT STA Sodium Chloride 1,000 mls @ 100 mls/hr 01/12/23 14:45 01/12/23 14:53 Sodium Chloride 0.9% 1000 Ml IV 02/11/23 14:44 100 mls/hr .Q10H ANALISA Administration Metronidazole 500 mg in 100 mls @ 200 mls/hr 01/12/23 18:00 01/12/23 14:52 Flagyl 500 Mg Ivpb IV 02/11/23 17:59 200 mls/hr Q6HT ANALISA 200 mls/hr Administration Discontinued Medications Generic Name Dose Route Start Last Admin Trade Name Bhaveshq PRN Reason Stop Dose Admin Enoxaparin Sodium Confirm 01/12/23 14:52 Enoxaparin Sodium 40 Mg/0.4 Ml Syringe Administered 01/12/23 14:53 Dose 40 mg SQ .STK-MED ONE Sodium Chloride 1,000 mls @ 999 mls/hr 01/12/23 10:27 01/12/23 12:20 Sodium Chloride 0.9% 1000 Ml IV 01/12/23 11:27 Infused .Q1H1M STA Infusion Sodium Chloride Confirm 01/12/23 10:34 Sodium Chloride 0.9% 1000 Ml Administered 01/12/23 10:35 Dose 1,000 mls @ ud .ROUTE .STK-MED ONE Levofloxacin/Dextrose Confirm 01/12/23 14:42 Levofloxacin 750mg/150ml D5w Administered 01/12/23 14:43 Dose 750 mg in 150 mls @ ud IV .STK-MED ONE Ondansetron HCl 4 mg 01/12/23 10:27 01/12/23 11:06 Ondansetron Hcl 4 Mg/2 Ml Vial IV 01/12/23 10:28 4 mg STAT ONE Administration Ondansetron HCl Confirm 01/12/23 10:34 Ondansetron Hcl 4 Mg/2 Ml Vial Administered 01/12/23 10:35 Dose 4 mg .ROUTE .STK-MED ONE Pantoprazole Sodium 40 mg 01/12/23 10:27 01/12/23 11:06 Pantoprazole 40 Mg Vial IV 01/12/23 10:28 40 mg STAT ONE Administration Pantoprazole Sodium Confirm 01/12/23 10:34 Pantoprazole 40 Mg Vial Administered 01/12/23 10:35 Dose 40 mg IV .STK-MED ONE Lab/Rad Data: Laboratory Result Diagrams 01/12/23 11:24 01/12/23 11:24 Laboratory Results 01/12/23 01/12/23 01/12/23 Range/Units 14:24 13:50 11:32 WBC (4.0-10.5) x10^3/uL RBC (4.1-5.4) x10^6/uL Hgb (12.0-16.0) g/dL Hct (35-47) % MCV (78-100) fL MCH (26-32) pg MCHC (32-36) g/dL RDW (11.5-14.0) % Plt Count (150-450) x10^3/uL MPV (7.5-11.0) fL Gran % (36.0-66.0) % Immature Gran % (Auto) (0.00-0.4) % Nucleat RBC Rel Count (0.00-0.1) % Eos # (Auto) (0-0.5) x10^3/uL Immature Gran # (Auto) (0.00-0.03) x10^3u/L Absolute Lymphs (auto) (1.0-4.6) x10^3/uL Absolute Monos (auto) (0.0-1.3) x10^3/uL Absolute Nucleated RBC (0.00-0.01) x10^3u/L Lymphocytes % (24.0-44.0) % Monocytes % (0.0-12.0) % Eosinophils % (0.00-5.0) % Basophils % (0.0-0.4) % Absolute Granulocytes (1.4-6.9) x10^3/uL Basophils # (0-0.4) x10^3/uL Sodium (137-145) mmol/L Potassium (3.5-5.1) mmol/L Chloride (98-107) mmol/L Carbon Dioxide (22-30) mmol/L Anion Gap (5-15) MEQ/L BUN (7-17) mg/dL Creatinine (0.52-1.04) mg/dL Estimated GFR ML/MIN Glucose (74-106) mg/dL Lactic Acid 1.3 (0.4-2.0) Calcium (8.4-10.2) mg/dL Total Bilirubin (0.2-1.3) mg/dL AST (14-36) U/L ALT (0-35) U/L Alkaline Phosphatase (38-126) U/L Troponin I < 0.012 (0.000-0.034) ng/mL Serum Total Protein (6.3-8.2) g/dL Albumin (3.5-5.0) g/dL Amylase (30-110) U/L Urine Color Yellow (Yellow) Urine Appearance Clear (Clear) Urine pH 6.0 (4.6-8.0) Ur Specific [place] >=1.030 A (1.005-1.030) Urine Protein Negative (Negative) Urine Glucose (UA) Negative (Negative) mg/dL Urine Ketones Negative (Negative) Urine Blood Negative (Negative) Urine Nitrite Negative (Negative) Urine Bilirubin Negative (Negative) Urine Urobilinogen 0.2 (0.2) mg/dL Ur Leukocyte Esterase Negative (Negative) U Hyaline Cast (Auto) NONE SEEN (0-2) /LPF Urine Microscopic RBC 0-2 (0-5) /HPF Urine Microscopic WBC 0-2 (0-5) /HPF Ur Epithelial Cells Rare (None Seen) /HPF Urine Bacteria None Seen (None Seen) /HPF Urine Culture Reflexed NO (NO) Influenza Type A Ag (NEGATIVE) Influenza Type B Ag (NEGATIVE) RSV (PCR) (NEGATIVE) SARS-CoV-2 (PCR) (NEGATIVE) 01/12/23 01/12/23 01/12/23 Range/Units 11:24 11:24 11:24 WBC (4.0-10.5) x10^3/uL RBC (4.1-5.4) x10^6/uL Hgb (12.0-16.0) g/dL Hct (35-47) % MCV (78-100) fL MCH (26-32) pg MCHC (32-36) g/dL RDW (11.5-14.0) % Plt Count (150-450) x10^3/uL MPV (7.5-11.0) fL Gran % (36.0-66.0) % Immature Gran % (Auto) (0.00-0.4) % Nucleat RBC Rel Count (0.00-0.1) % Eos # (Auto) (0-0.5) x10^3/uL Immature Gran # (Auto) (0.00-0.03) x10^3u/L Absolute Lymphs (auto) (1.0-4.6) x10^3/uL Absolute Monos (auto) (0.0-1.3) x10^3/uL Absolute Nucleated RBC (0.00-0.01) x10^3u/L Lymphocytes % (24.0-44.0) % Monocytes % (0.0-12.0) % Eosinophils % (0.00-5.0) % Basophils % (0.0-0.4) % Absolute Granulocytes (1.4-6.9) x10^3/uL Basophils # (0-0.4) x10^3/uL Sodium 141 (137-145) mmol/L Potassium 3.8 (3.5-5.1) mmol/L Chloride 108 H (98-107) mmol/L Carbon Dioxide 26 (22-30) mmol/L Anion Gap 11.0 (5-15) MEQ/L BUN 13 (7-17) mg/dL Creatinine 0.94 (0.52-1.04) mg/dL Estimated GFR > 60.0 ML/MIN Glucose 129 H (74-106) mg/dL Lactic Acid (0.4-2.0) Calcium 9.0 (8.4-10.2) mg/dL Total Bilirubin 0.70 (0.2-1.3) mg/dL AST 19 (14-36) U/L ALT 9 (0-35) U/L Alkaline Phosphatase 108 (38-126) U/L Troponin I < 0.012 (0.000-0.034) ng/mL Serum Total Protein 6.6 (6.3-8.2) g/dL Albumin 3.5 (3.5-5.0) g/dL Amylase 52 (30-110) U/L Urine Color (Yellow) Urine Appearance (Clear) Urine pH (4.6-8.0) Ur Specific [place] (1.005-1.030) Urine Protein (Negative) Urine Glucose (UA) (Negative) mg/dL Urine Ketones (Negative) Urine Blood (Negative) Urine Nitrite (Negative) Urine Bilirubin (Negative) Urine Urobilinogen (0.2) mg/dL Ur Leukocyte Esterase (Negative) U Hyaline Cast (Auto) (0-2) /LPF Urine Microscopic RBC (0-5) /HPF Urine Microscopic WBC (0-5) /HPF Ur Epithelial Cells (None Seen) /HPF Urine Bacteria (None Seen) /HPF Urine Culture Reflexed (NO) Influenza Type A Ag NEGATIVE (NEGATIVE) Influenza Type B Ag NEGATIVE (NEGATIVE) RSV (PCR) NEGATIVE (NEGATIVE) SARS-CoV-2 (PCR) NEGATIVE (NEGATIVE) 01/12/23 Range/Units 11:24 WBC 5.9 (4.0-10.5) x10^3/uL RBC 4.51 (4.1-5.4) x10^6/uL Hgb 12.9 (12.0-16.0) g/dL Hct 40.8 (35-47) % MCV 90.5 (78-100) fL MCH 28.6 (26-32) pg MCHC 31.6 L (32-36) g/dL RDW 13.8 (11.5-14.0) % Plt Count 193 (150-450) x10^3/uL MPV 11.2 H (7.5-11.0) fL Gran % 78.2 H (36.0-66.0) % Immature Gran % (Auto) 0.3 (0.00-0.4) % Nucleat RBC Rel Count 0.0 (0.00-0.1) % Eos # (Auto) 0.03 (0-0.5) x10^3/uL Immature Gran # (Auto) 0.02 (0.00-0.03) x10^3u/L Absolute Lymphs (auto) 0.99 L (1.0-4.6) x10^3/uL Absolute Monos (auto) 0.24 (0.0-1.3) x10^3/uL Absolute Nucleated RBC 0.00 (0.00-0.01) x10^3u/L Lymphocytes % 16.7 L (24.0-44.0) % Monocytes % 4.0 (0.0-12.0) % Eosinophils % 0.5 (0.00-5.0) % Basophils % 0.3 (0.0-0.4) % Absolute Granulocytes 4.63 (1.4-6.9) x10^3/uL Basophils # 0.02 (0-0.4) x10^3/uL Sodium (137-145) mmol/L Potassium (3.5-5.1) mmol/L Chloride (98-107) mmol/L Carbon Dioxide (22-30) mmol/L Anion Gap (5-15) MEQ/L BUN (7-17) mg/dL Creatinine (0.52-1.04) mg/dL Estimated GFR ML/MIN Glucose (74-106) mg/dL Lactic Acid (0.4-2.0) Calcium (8.4-10.2) mg/dL Total Bilirubin (0.2-1.3) mg/dL AST (14-36) U/L ALT (0-35) U/L Alkaline Phosphatase (38-126) U/L Troponin I (0.000-0.034) ng/mL Serum Total Protein (6.3-8.2) g/dL Albumin (3.5-5.0) g/dL Amylase (30-110) U/L Urine Color (Yellow) Urine Appearance (Clear) Urine pH (4.6-8.0) Ur Specific [place] (1.005-1.030) Urine Protein (Negative) Urine Glucose (UA) (Negative) mg/dL Urine Ketones (Negative) Urine Blood (Negative) Urine Nitrite (Negative) Urine Bilirubin (Negative) Urine Urobilinogen (0.2) mg/dL Ur Leukocyte Esterase (Negative) U Hyaline Cast (Auto) (0-2) /LPF Urine Microscopic RBC (0-5) /HPF Urine Microscopic WBC (0-5) /HPF Ur Epithelial Cells (None Seen) /HPF Urine Bacteria (None Seen) /HPF Urine Culture Reflexed (NO) Influenza Type A Ag (NEGATIVE) Influenza Type B Ag (NEGATIVE) RSV (PCR) (NEGATIVE) SARS-CoV-2 (PCR) (NEGATIVE) - Progress Progress Note: 01/12/23 14:58 Nursing note and vital signs reviewed No food or housing insecurities noted Additional history per 1L NS bolus 40mg IV Protonix 4mg IV Zofran All labs reviewed and shared w pt/ Obs per Dr. Barajas/Diverticulitis/Bradycardia/L1 lytic lesion/Hepatic lesion Full code 750mg IV Levaquin 500mg IV Flagyl 01/12/23 15:00 01/12/23 15:02 Counseled pt/family regarding: lab results, diagnosis, rad results Medical Desision Making - Independent Historian Additional History obtained from: Spouse - Diagnostic Testing Radiological Interpretation: Reviewed by me - Risk of complications The pt has a high risk of morbidity or mortality based on: Drug therapy requiring intensive monitoring for toxicity - Departure Departure Disposition: Observation Clinical Impression: Diverticulitis, Lytic lesion of bone on x-ray, Liver lesion, right lobe, Bradycardia Condition: Stable Critical Care Time: No Referrals: LEILA SHANKAR MD [Primary Care Provider] - Follow up/PCP as directed
[2023-01-12 11:42] LABS: ALBUMIN 3.5 g/dL (3.5-5.0); ALKALINE PHOSPHATASE 108 U/L (38-126); AMYLASE 52 U/L (30-110); BLOOD UREA NITROGEN 13 mg/dL (7-17); CHLORIDE 108 mmol/L (98-107); Carbon Dioxide 26 mmol/L (22-30); Creatinine 1 0.94 mg/dL (0.52-1.04); EST GLOMERULAR FILTRATION RATE > 60.0 ML/MIN; Glucose 129 mg/dL (74-106); Potassium 3.8 mmol/L (3.5-5.1); SGOT/AST 19 U/L (14-36); SGPT/ALT 9 U/L (0-35); SODIUM 141 mmol/L (137-145); Total Protein 6.6 g/dL (6.3-8.2)
[2023-01-12 12:10] LABS: INFLUENZA A NEGATIVE (NEGATIVE); INFLUENZA B NEGATIVE (NEGATIVE); RESPIRATORY SYNCTIAL VIRUS NEGATIVE (NEGATIVE); SARS-CoV-2 Xpert Express NEGATIVE (NEGATIVE)
[2023-01-12 14:04] LABS: Appearance Clear (Clear); Bacteria None Seen /HPF (None Seen); Bilirubin Negative (Negative); Blood Negative (Negative); Epithelial Cells Rare /HPF (None Seen); Glucose, Urine Negative (Negative); Hyaline Casts NONE SEEN /LPF (0-2); Ketones Negative (Negative); Leukocyte Esterase Negative (Negative); Nitrite Negative (Negative); Protein,Urine Dip Negative (Negative); RBC 0-2 /HPF (0-5); Specific Gravity >=1.030 (1.005-1.030); Urobilinogen 0.2 mg/dL (0.2); WBC 0-2 /HPF (0-5)
[2023-01-12 14:15] LABS: ADD URINE CULTURE? NO (NO)
--- NOTE | 2023-01-12 14:23 | XRAY ---
CLINICAL HISTORY:Left-sided abdominal pain. COMPARISON:None. TECHNIQUES:CT scan of the abdomen and pelvis was performed with IV contrast. Coronal and sagittal reconstructive images were also obtained. FINDINGS: The liver is normal in size and measures 14.9 cm. small well defined hypodense hypo-enhancing segment 7 focal lesion, meand density 44HU, measuring about [id number]. The portal vein, intrahepatic biliary radicals and the bile ducts are normal. A 1 cm non specific lymph node seen at [facility] needs follow up. The spleen, pancreas, adrenal glands are unremarkable. The kidneys are unremarkable. They are normal in size and shape. No calculi or hydronephrosis. The gallbladder is normal. No pericholecystic collection or radio dense calculi in the gall bladder. The sigmoid, descending and the transverse colon show diffuse wall edema, with sigmoid colon showing multiple diverticula wall thickening, fat strandings suggesting diverticulitis. The ascending colon, and visualized small bowel loops are unremarkable. There is no evidence of significant enlargement of the mesenteric or retroperitoneal lymph nodes. Pelvis: The urinary bladder is unremarkable. The rectosigmoid colon is unremarkable. No adnexal masses or cysts Bilateral fat containing inguinal hernias. The osseous structures show small lytic L1 lesion Mean density about 7 HU, likely benign with no cortical destruction, to be further assessed. Lumbar spondylosis with Mild L5 -S1 anterolisthesis. IMPRESSION: 1. Signs suggestive of diverticulosis with diverticulitis. Clinical correlation suggested. 2. Right hepatic lobe segment 7 hypodense focal lesion, further assessment is recommended. 3. L1 small lytic lesion, Mean density about 7 HU and a 1 cm lymph node at [facility], needs follow up for further evaluation. Electronically Signed by: Luis Daniel Mcdonald MD. (01/12/2023 13:13:33 OCCUPATIONAL THERAPY TEACHER)
[2023-01-12] MEDS ORDERED: LEVOFLOXACIN 750MG/150ML D5W 750 MG/150 ML BAG IV STA (14:37)
[2023-01-12] MEDS ORDERED: LEVOFLOXACIN 750MG/150ML D5W 750 MG/150 ML BAG IV ONE (14:42)
[2023-01-12] MEDS ORDERED: ENOXAPARIN SODIUM SQ ONE (14:52)
[2023-01-12] MEDS: FLAGYL 500 MG IVPB 500 MG/100 ML BAG IV SCH ×2 (14:52→23:12)
[2023-01-12] MEDS: Sodium Chloride 0.9% 1000 ML 1,000 ML IV SCH ×2 (14:53→21:04)
[2023-01-12] MEDS: ENOXAPARIN SODIUM SQ SCH (14:55)
[2023-01-12] MEDS ORDERED: Zofran 4 MG/2 ML VIAL IV PRN (19:19)
--- NOTE | 2023-01-12 19:31 | PCM.HP ---
History of Present Illness - Chief Complaint Chief Complaint: Diverticulitis Date: 01/12/23 History of Present Illness: is a 77 year old female who presented to the hospital with 2 days of abdominal pain (left sided, intermittent, sharp quality), nausea and nonbilious nonbloody emesis. She also reported that diarrhea began prior to presentation (nonbloody). No recent changes in her diet. She denies any dizzines or weakness or palpitations. She reported cough and coryza but denies fevers or chills. In the ED the patient was noted to have diverticulitis, and IV fluids and IV antibiotics were administered. Of note, she was bradycardic in the ED without symptoms; her metoprolol dose had been recently decreased by Dr. Rodas. - Review of Systems Constitutional: No Symptoms Eyes: No Symptoms Ears, Nose, & Throat: No Symptoms Respiratory: Cough Cardiac: No Symptoms Abdominal/Gastrointestinal: Abdominal Pain, Nausea, Diarrhea Genitourinary Symptoms: No Symptoms Musculoskeletal: No Symptoms Skin: No Symptoms Neurological: No Symptoms Psychological: No Symptoms Endocrine: No Symptoms Hematologic/Lymphatic: No Symptoms Immunological/Allergic: No Symptoms All Other Systems: Reviewed and Negative Medications & Allergies Home Medications: Home Medication List Donepezil HCl 10 mg [Aricept 10 MG] 10 mg PO HS 06/05/17 [History Confirmed 01/12/23] Famotidine 20 mg [Pepcid 20 MG] 20 mg PO BID 06/05/17 [History Confirmed 01/12/23] Metoprolol Succinate 50 mg [Toprol Xl 50 MG] 50 mg PO DAILY 06/05/17 [History Confirmed 01/12/23] Venlafaxine HCl [Effexor] 150 mg PO DAILY 06/05/17 [History Confirmed 01/12/23] Losartan Potassium 50 mg [Cozaar 50 MG] 50 mg PO BID 03/17/22 [History Confirmed 01/12/23] Trazodone HCl 50 mg [Desyrel 50 mg] 100 mg PO HS 03/17/22 [History Confirmed 01/12/23] Simvastatin 20Mg [Zocor 20Mg] 20 mg PO HS 12/30/22 [History Confirmed 01/12/23] Amlodipine Besylate 5 mg [Norvasc 5 mg] 10 mg PO HS 01/12/23 [History Confirmed 01/12/23] Aspirin EC 81 mg [Ecotrin 81 mg] 81 mg PO HS 01/12/23 [History Confirmed 01/12/23] Allergies/Adverse Reactions: Allergies Allergy/AdvReac Type Severity Reaction Status Date / Time tetracycline [Tetracycline] Allergy Intermediate ITCH, BURN Verified 01/12/23 11:08 latex Allergy Rash Verified 01/12/23 11:08 - Past Medical History Past Medical History: Yes Neurological History: No Pertinent History ENT History: Cataracts Cardiac History: Coronary Artery Disease, High Cholesterol, Hypertension Respiratory History: No Pertinent History Endocrine Medical History: No Pertinent History Musculoskelatal History: No Pertinent History GI Medical History: GERD History: No Pertinent History Pyscho-Social History: Anxiety Reproductive Disorders: No Pertinent History, Menstrual Problems - Female History Are you now?: No - Past Surgical History Past Surgical History: Yes Neuro Surgical History: No Pertinent History Cardiac History: CABG Respiratory Surgery: No Pertinent History GI Surgical History: No Pertinent History Genitourinary Surgical Hx: No Pertinent History Musculskeletal Surgical Hx: Joint Replacement Female Surgical History: Hysterectomy Other Surgical History: LT KNEE REPLACEMENT, CARPEL TUNNEL - Social History Smoking Status: Never smoker Exposure to second hand smoke: Yes Alcohol: None Drug Use: none - Physical Exam Vital Signs: Vital Signs - 24 hr Temp Pulse Resp BP BP Pulse Ox 01/12/23 19:21 97.1 F 44 L 16 186/74 97 01/12/23 16:00 97.1 F 42 L 16 200/86 97 01/12/23 15:03 98 01/12/23 14:31 50 L 17 151/66 97 01/12/23 14:01 46 L 12 184/79 98 01/12/23 14:00 48 L 14 99 01/12/23 13:52 54 L 17 96 01/12/23 13:31 123/99 01/12/23 13:30 51 L 23 98 01/12/23 13:20 42 L 14 93 L 01/12/23 13:10 41 L 15 96 01/12/23 13:04 20 94 L 01/12/23 12:40 66 25 H 01/12/23 12:33 43 L 16 95 01/12/23 12:01 44 L 11 L 168/63 96 01/12/23 11:30 183/115 01/12/23 11:15 163/71 95 01/12/23 11:14 98 01/12/23 10:27 96.2 F 42 L 152/83 98 General Appearance: no apparent distress Neurologic Exam: alert, oriented x 3, cooperative, 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, normal mood/affect, nml cerebellar function Eye Exam: PERRL/EOMI, eyes nml inspection Ears, Nose, Throat Exam: normal ENT inspection Neck Exam: normal inspection, non-tender Respiratory Exam: normal breath sounds, lungs clear Cardiovascular Exam: regular rate/rhythm, normal heart sounds Gastrointestinal/Abdomen Exam: soft, other (no peritoneal signs, rigidity or guarding) Back Exam: normal range of motion Extremity Exam: normal inspection, normal range of motion Skin Exam: normal color Results - Labs Lab/Micro Results: Lab Results-Last 24 Hours 01/12/23 01/12/23 01/12/23 Range/Units 11:24 11:24 11:24 WBC 5.9 (4.0-10.5) x10^3/uL RBC 4.51 (4.1-5.4) x10^6/uL Hgb 12.9 (12.0-16.0) g/dL Hct 40.8 (35-47) % MCV 90.5 (78-100) fL MCH 28.6 (26-32) pg MCHC 31.6 L (32-36) g/dL RDW 13.8 (11.5-14.0) % Plt Count 193 (150-450) x10^3/uL MPV 11.2 H (7.5-11.0) fL Gran % 78.2 H (36.0-66.0) % Immature Gran % (Auto) 0.3 (0.00-0.4) % Nucleat RBC Rel Count 0.0 (0.00-0.1) % Eos # (Auto) 0.03 (0-0.5) x10^3/uL Immature Gran # (Auto) 0.02 (0.00-0.03) x10^3u/L Absolute Lymphs (auto) 0.99 L (1.0-4.6) x10^3/uL Absolute Monos (auto) 0.24 (0.0-1.3) x10^3/uL Absolute Nucleated RBC 0.00 (0.00-0.01) x10^3u/L Lymphocytes % 16.7 L (24.0-44.0) % Monocytes % 4.0 (0.0-12.0) % Eosinophils % 0.5 (0.00-5.0) % Basophils % 0.3 (0.0-0.4) % Absolute Granulocytes 4.63 (1.4-6.9) x10^3/uL Basophils # 0.02 (0-0.4) x10^3/uL Sodium 141 (137-145) mmol/L Potassium 3.8 (3.5-5.1) mmol/L Chloride 108 H (98-107) mmol/L Carbon Dioxide 26 (22-30) mmol/L Anion Gap 11.0 (5-15) MEQ/L BUN 13 (7-17) mg/dL Creatinine 0.94 (0.52-1.04) mg/dL Estimated GFR > 60.0 ML/MIN Glucose 129 H (74-106) mg/dL Lactic Acid (0.4-2.0) Calcium 9.0 (8.4-10.2) mg/dL Total Bilirubin 0.70 (0.2-1.3) mg/dL AST 19 (14-36) U/L ALT 9 (0-35) U/L Alkaline Phosphatase 108 (38-126) U/L Troponin I < 0.012 (0.000-0.034) ng/mL Serum Total Protein 6.6 (6.3-8.2) g/dL Albumin 3.5 (3.5-5.0) g/dL Amylase 52 (30-110) U/L Urine Color (Yellow) Urine Appearance (Clear) Urine pH (4.6-8.0) Ur Specific [place] (1.005-1.030) Urine Protein (Negative) Urine Glucose (UA) (Negative) mg/dL Urine Ketones (Negative) Urine Blood (Negative) Urine Nitrite (Negative) Urine Bilirubin (Negative) Urine Urobilinogen (0.2) mg/dL Ur Leukocyte Esterase (Negative) U Hyaline Cast (Auto) (0-2) /LPF Urine Microscopic RBC (0-5) /HPF Urine Microscopic WBC (0-5) /HPF Ur Epithelial Cells (None Seen) /HPF Urine Bacteria (None Seen) /HPF Urine Culture Reflexed (NO) Influenza Type A Ag (NEGATIVE) Influenza Type B Ag (NEGATIVE) RSV (PCR) (NEGATIVE) SARS-CoV-2 (PCR) (NEGATIVE) 01/12/23 01/12/23 01/12/23 Range/Units 11:24 11:32 13:50 WBC (4.0-10.5) x10^3/uL RBC (4.1-5.4) x10^6/uL Hgb (12.0-16.0) g/dL Hct (35-47) % MCV (78-100) fL MCH (26-32) pg MCHC (32-36) g/dL RDW (11.5-14.0) % Plt Count (150-450) x10^3/uL MPV (7.5-11.0) fL Gran % (36.0-66.0) % Immature Gran % (Auto) (0.00-0.4) % Nucleat RBC Rel Count (0.00-0.1) % Eos # (Auto) (0-0.5) x10^3/uL Immature Gran # (Auto) (0.00-0.03) x10^3u/L Absolute Lymphs (auto) (1.0-4.6) x10^3/uL Absolute Monos (auto) (0.0-1.3) x10^3/uL Absolute Nucleated RBC (0.00-0.01) x10^3u/L Lymphocytes % (24.0-44.0) % Monocytes % (0.0-12.0) % Eosinophils % (0.00-5.0) % Basophils % (0.0-0.4) % Absolute Granulocytes (1.4-6.9) x10^3/uL Basophils # (0-0.4) x10^3/uL Sodium (137-145) mmol/L Potassium (3.5-5.1) mmol/L Chloride (98-107) mmol/L Carbon Dioxide (22-30) mmol/L Anion Gap (5-15) MEQ/L BUN (7-17) mg/dL Creatinine (0.52-1.04) mg/dL Estimated GFR ML/MIN Glucose (74-106) mg/dL Lactic Acid 1.3 (0.4-2.0) Calcium (8.4-10.2) mg/dL Total Bilirubin (0.2-1.3) mg/dL AST (14-36) U/L ALT (0-35) U/L Alkaline Phosphatase (38-126) U/L Troponin I (0.000-0.034) ng/mL Serum Total Protein (6.3-8.2) g/dL Albumin (3.5-5.0) g/dL Amylase (30-110) U/L Urine Color Yellow (Yellow) Urine Appearance Clear (Clear) Urine pH 6.0 (4.6-8.0) Ur Specific [place] >=1.030 A (1.005-1.030) Urine Protein Negative (Negative) Urine Glucose (UA) Negative (Negative) mg/dL Urine Ketones Negative (Negative) Urine Blood Negative (Negative) Urine Nitrite Negative (Negative) Urine Bilirubin Negative (Negative) Urine Urobilinogen 0.2 (0.2) mg/dL Ur Leukocyte Esterase Negative (Negative) U Hyaline Cast (Auto) NONE SEEN (0-2) /LPF Urine Microscopic RBC 0-2 (0-5) /HPF Urine Microscopic WBC 0-2 (0-5) /HPF Ur Epithelial Cells Rare (None Seen) /HPF Urine Bacteria None Seen (None Seen) /HPF Urine Culture Reflexed NO (NO) Influenza Type A Ag NEGATIVE (NEGATIVE) Influenza Type B Ag NEGATIVE (NEGATIVE) RSV (PCR) NEGATIVE (NEGATIVE) SARS-CoV-2 (PCR) NEGATIVE (NEGATIVE) 01/12/23 01/12/23 Range/Units 14:24 18:09 WBC (4.0-10.5) x10^3/uL RBC (4.1-5.4) x10^6/uL Hgb (12.0-16.0) g/dL Hct (35-47) % MCV (78-100) fL MCH (26-32) pg MCHC (32-36) g/dL RDW (11.5-14.0) % Plt Count (150-450) x10^3/uL MPV (7.5-11.0) fL Gran % (36.0-66.0) % Immature Gran % (Auto) (0.00-0.4) % Nucleat RBC Rel Count (0.00-0.1) % Eos # (Auto) (0-0.5) x10^3/uL Immature Gran # (Auto) (0.00-0.03) x10^3u/L Absolute Lymphs (auto) (1.0-4.6) x10^3/uL Absolute Monos (auto) (0.0-1.3) x10^3/uL Absolute Nucleated RBC (0.00-0.01) x10^3u/L Lymphocytes % (24.0-44.0) % Monocytes % (0.0-12.0) % Eosinophils % (0.00-5.0) % Basophils % (0.0-0.4) % Absolute Granulocytes (1.4-6.9) x10^3/uL Basophils # (0-0.4) x10^3/uL Sodium (137-145) mmol/L Potassium (3.5-5.1) mmol/L Chloride (98-107) mmol/L Carbon Dioxide (22-30) mmol/L Anion Gap (5-15) MEQ/L BUN (7-17) mg/dL Creatinine (0.52-1.04) mg/dL Estimated GFR ML/MIN Glucose (74-106) mg/dL Lactic Acid (0.4-2.0) Calcium (8.4-10.2) mg/dL Total Bilirubin (0.2-1.3) mg/dL AST (14-36) U/L ALT (0-35) U/L Alkaline Phosphatase (38-126) U/L Troponin I < 0.012 < 0.012 (0.000-0.034) ng/mL Serum Total Protein (6.3-8.2) g/dL Albumin (3.5-5.0) g/dL Amylase (30-110) U/L Urine Color (Yellow) Urine Appearance (Clear) Urine pH (4.6-8.0) Ur Specific [place] (1.005-1.030) Urine Protein (Negative) Urine Glucose (UA) (Negative) mg/dL Urine Ketones (Negative) Urine Blood (Negative) Urine Nitrite (Negative) Urine Bilirubin (Negative) Urine Urobilinogen (0.2) mg/dL Ur Leukocyte Esterase (Negative) U Hyaline Cast (Auto) (0-2) /LPF Urine Microscopic RBC (0-5) /HPF Urine Microscopic WBC (0-5) /HPF Ur Epithelial Cells (None Seen) /HPF Urine Bacteria (None Seen) /HPF Urine Culture Reflexed (NO) Influenza Type A Ag (NEGATIVE) Influenza Type B Ag (NEGATIVE) RSV (PCR) (NEGATIVE) SARS-CoV-2 (PCR) (NEGATIVE) - Radiology Impressions Radiology Exams & Impressions: Radiology Procedures Category Date Time Status ABDOMEN AND PELVIS W CONTRAST [CT] Stat Exams 01/12/23 11:53 Completed Assessment/Plan (1) Diverticulitis Current Visit: Yes Status: Acute Assessment & Plan: Empiric antibiotics. Antiemetics and analgesia prn. Plan on total 10d course. ADAT and discharge when able to tolerate po intake. Will need outpatient GI referral consideration. Code(s): K57.92 - DVTRCLI OF INTEST, PART UNSP, W/O PERF OR ABSCESS W/O BLEED (2) Bradycardia Current Visit: Yes Status: Acute Assessment & Plan: Follows with Dr. Rodas. HR has been in the 30s. Will hold metoprolol and suggest holding indefinitely until follow up. Monitor on telemetry. K normal. Will check Mag. Code(s): R00.1 - BRADYCARDIA, UNSPECIFIED (3) Lytic lesion of bone on x-ray Current Visit: Yes Status: Acute Assessment & Plan: Likely benign. Discussed finding with patient, patient's , and Dr. Lira via telephone. Plan will be for outpatient workup and follow up. Code(s): M89.9 - DISORDER OF BONE, UNSPECIFIED (4) Liver lesion, right lobe Current Visit: Yes Status: Acute Assessment & Plan: Discussed finding (liver lesion as well as adenopathy) with patient, patient's , and Dr. Lira via telephone. Had colonoscopy a few years ago without any significant findings; may need outpatient gastroenterology reevaluation. Plan will be for outpatient workup and follow up. Code(s): K76.9 - LIVER DISEASE, UNSPECIFIED Telemedicine Encounter - Telemedicine Encounter Telemedicine Encounter: The entirety of this encounter was performed via Telemedicine"
[2023-01-12] MEDS ORDERED: ANTIVERT 25 MG PO PRN (19:45)
[2023-01-12] MEDS: Pepcid 20 MG PO SCH (21:02)
[2023-01-12] MEDS: Cozaar 50 MG PO SCH (21:02)
[2023-01-12] MEDS ORDERED: Aricept 10 MG PO SCH (22:00)
[2023-01-12] MEDS ORDERED: ECOTRIN 81 MG PO SCH (22:00)
[2023-01-12] MEDS ORDERED: DESYREL 50 MG PO SCH (22:00)
[2023-01-12] MEDS ORDERED: NORVASC 5 MG PO SCH (22:00)
[2023-01-12] MEDS ORDERED: ZOCOR 20MG PO SCH (22:00)
[2023-01-13] MEDS: Sodium Chloride 0.9% 1000 ML 1,000 ML IV SCH ×2 (04:11→06:49)
[2023-01-13 05:06] LABS: Absolute Neutrophil Ct (ANC) 4.34 x10^3/uL (1.4-6.9); BASOPHIL % 0.3 % (0.0-0.4); Basophil (Absolute #) 0.02 x10^3/uL (0-0.4); Eosinophil % 0.3 % (0.00-5.0); Eosinophil (Absolute #) 0.02 x10^3/uL (0-0.5); Hemoglobin 13.1 g/dL (12.0-16.0); IMMATURE GRAN # 0.02 x10^3u/L (0.00-0.03); IMMATURE GRAN % 0.3 % (0.00-0.4); Lymphocyte (Absolute #) 1.22 x10^3/uL (1.0-4.6); Lymphocytes % 20.4 % (24.0-44.0); Mean Cell Volume 90.1 fL (78-100); Mean Corpuscular Hemoglobin 28.8 pg (26-32); Mean Platelet Volume 10.7 fL (7.5-11.0); Monocyte (Absolute #) 0.35 x10^3/uL (0.0-1.3); Monocytes % 5.9 % (0.0-12.0); Neutrophil % 72.8 % (36.0-66.0); Platelet Count 184 x10^3/uL (150-450); Red Blood Count 4.55 x10^6/uL (4.1-5.4)
[2023-01-13 05:21] LABS: ALBUMIN 3.4 g/dL (3.5-5.0); ANION GAP 9.7 MEQ/L (5-15); BILIRUBIN,TOTAL 0.5 mg/dL (0.2-1.3); Creatinine 1 1.01 mg/dL (0.52-1.04); EST GLOMERULAR FILTRATION RATE 56.2 ML/MIN; MAGNESIUM 2.1 mg/dL (1.6-2.3); Potassium 3.8 mmol/L (3.5-5.1); Total Protein 6.2 g/dL (6.3-8.2)
[2023-01-13] MEDS: FLAGYL 500 MG IVPB 500 MG/100 ML BAG IV SCH (05:27)
[2023-01-13] MEDS ORDERED: ANTIVERT 25 MG PO PRN (07:15)
[2023-01-13 07:19] VITALS: PULSE 49
[2023-01-13] MEDS: Cozaar 50 MG PO SCH (08:50)
[2023-01-13] MEDS: Pepcid 20 MG PO SCH (08:50)
[2023-01-13] MEDS: ENOXAPARIN SODIUM SQ SCH (08:51)
[2023-01-13] MEDS ORDERED: Effexor XR 75 MG PO SCH (10:00)
[2023-01-13] MEDS ORDERED: VENLAFAXINE HCL 50 MG PO SCH (10:00)
[2023-01-13] MEDS ORDERED: LEVOFLOXACIN 750MG/150ML D5W 750 MG/150 ML BAG IV SCH (10:00)
--- NOTE | 2023-01-13 12:12 | PCM.DS ---
Discharge Summary Date of Admission: 01/12/23 15:44 Date of Discharge: 01/13/23 Admitting Physician: ADRIANO LLANOS MD Primary Care Provider: LEILA SHANKAR Allergies Allergies tetracycline [Tetracycline] Allergy (Intermediate, Verified 01/12/23 11:08) ITCH, BURN latex Allergy (Verified 01/12/23 11:08) Rash Hospital Summary - Hospital Course Hospital Course: Presented with diverticulitis. Responded well to antibiotics. Will complete empiric 10 day course with low residue diet. May need GI reevaluation. Also will hold metoprolol due to resting bradycardia to the 30s; needs to follow up with Dr. Rodas. I have discussed the CT findings (liver lesion, anastasiya hepatis lymph node, lumbar lytic lesion) with Dr. Shankar, who will evaluate these as an outpatient. - Vitals & Intake/Output Vital Signs: Vital Signs Temperature 97.1 F 01/13/23 07:19 Pulse Rate 49 L 01/13/23 07:19 Respiratory Rate 16 01/13/23 07:19 Blood Pressure 181/79 01/13/23 07:19 O2 Sat by Pulse Oximetry 95 01/13/23 07:19 Intake & Output: Intake & Output 01/11/23 01/12/23 01/13/23 01/14/23 11:59 11:59 11:59 11:59 Intake Total 2587 Output Total 1400 Balance 1187 Weight 74.843 kg 73 kg - Lab Result Diagrams: 01/13/23 04:00 01/13/23 04:59 Lab Results-Last 24 Hrs: Lab Results-Last 24 Hours 01/12/23 01/12/23 01/12/23 Range/Units 11:24 13:50 14:24 WBC (4.0-10.5) x10^3/uL RBC (4.1-5.4) x10^6/uL Hgb (12.0-16.0) g/dL Hct (35-47) % MCV (78-100) fL MCH (26-32) pg MCHC (32-36) g/dL RDW (11.5-14.0) % Plt Count (150-450) x10^3/uL MPV (7.5-11.0) fL Gran % (36.0-66.0) % Immature Gran % (Auto) (0.00-0.4) % Nucleat RBC Rel Count (0.00-0.1) % Eos # (Auto) (0-0.5) x10^3/uL Immature Gran # (Auto) (0.00-0.03) x10^3u/L Absolute Lymphs (auto) (1.0-4.6) x10^3/uL Absolute Monos (auto) (0.0-1.3) x10^3/uL Absolute Nucleated RBC (0.00-0.01) x10^3u/L Lymphocytes % (24.0-44.0) % Monocytes % (0.0-12.0) % Eosinophils % (0.00-5.0) % Basophils % (0.0-0.4) % Absolute Granulocytes (1.4-6.9) x10^3/uL Basophils # (0-0.4) x10^3/uL Sodium (137-145) mmol/L Potassium (3.5-5.1) mmol/L Chloride (98-107) mmol/L Carbon Dioxide (22-30) mmol/L Anion Gap (5-15) MEQ/L BUN (7-17) mg/dL Creatinine (0.52-1.04) mg/dL Estimated GFR ML/MIN Glucose (74-106) mg/dL Calcium (8.4-10.2) mg/dL Magnesium (1.6-2.3) mg/dL Total Bilirubin (0.2-1.3) mg/dL AST (14-36) U/L ALT (0-35) U/L Alkaline Phosphatase (38-126) U/L Troponin I < 0.012 (0.000-0.034) ng/mL Serum Total Protein (6.3-8.2) g/dL Albumin (3.5-5.0) g/dL Urine Color Yellow (Yellow) Urine Appearance Clear (Clear) Urine pH 6.0 (4.6-8.0) Ur Specific [place] >=1.030 A (1.005-1.030) Urine Protein Negative (Negative) Urine Glucose (UA) Negative (Negative) mg/dL Urine Ketones Negative (Negative) Urine Blood Negative (Negative) Urine Nitrite Negative (Negative) Urine Bilirubin Negative (Negative) Urine Urobilinogen 0.2 (0.2) mg/dL Ur Leukocyte Esterase Negative (Negative) U Hyaline Cast (Auto) NONE SEEN (0-2) /LPF Urine Microscopic RBC 0-2 (0-5) /HPF Urine Microscopic WBC 0-2 (0-5) /HPF Ur Epithelial Cells Rare (None Seen) /HPF Urine Bacteria None Seen (None Seen) /HPF Urine Culture Reflexed NO (NO) Influenza Type A Ag NEGATIVE (NEGATIVE) Influenza Type B Ag NEGATIVE (NEGATIVE) RSV (PCR) NEGATIVE (NEGATIVE) SARS-CoV-2 (PCR) NEGATIVE (NEGATIVE) 01/12/23 01/13/23 01/13/23 Range/Units 18:09 04:00 04:59 WBC 6.0 (4.0-10.5) x10^3/uL RBC 4.55 (4.1-5.4) x10^6/uL Hgb 13.1 (12.0-16.0) g/dL Hct 41.0 (35-47) % MCV 90.1 (78-100) fL MCH 28.8 (26-32) pg MCHC 32.0 (32-36) g/dL RDW 14.0 (11.5-14.0) % Plt Count 184 (150-450) x10^3/uL MPV 10.7 (7.5-11.0) fL Gran % 72.8 H (36.0-66.0) % Immature Gran % (Auto) 0.3 (0.00-0.4) % Nucleat RBC Rel Count 0.0 (0.00-0.1) % Eos # (Auto) 0.02 (0-0.5) x10^3/uL Immature Gran # (Auto) 0.02 (0.00-0.03) x10^3u/L Absolute Lymphs (auto) 1.22 (1.0-4.6) x10^3/uL Absolute Monos (auto) 0.35 (0.0-1.3) x10^3/uL Absolute Nucleated RBC 0.00 (0.00-0.01) x10^3u/L Lymphocytes % 20.4 L (24.0-44.0) % Monocytes % 5.9 (0.0-12.0) % Eosinophils % 0.3 (0.00-5.0) % Basophils % 0.3 (0.0-0.4) % Absolute Granulocytes 4.34 (1.4-6.9) x10^3/uL Basophils # 0.02 (0-0.4) x10^3/uL Sodium 141 (137-145) mmol/L Potassium 3.8 (3.5-5.1) mmol/L Chloride 109 H (98-107) mmol/L Carbon Dioxide 26 (22-30) mmol/L Anion Gap 9.7 (5-15) MEQ/L BUN 9 (7-17) mg/dL Creatinine 1.01 (0.52-1.04) mg/dL Estimated GFR 56.2 ML/MIN Glucose 101 (74-106) mg/dL Calcium 9.0 (8.4-10.2) mg/dL Magnesium 2.1 (1.6-2.3) mg/dL Total Bilirubin 0.50 (0.2-1.3) mg/dL AST 21 (14-36) U/L ALT 9 (0-35) U/L Alkaline Phosphatase 95 (38-126) U/L Troponin I < 0.012 (0.000-0.034) ng/mL Serum Total Protein 6.2 L (6.3-8.2) g/dL Albumin 3.4 L (3.5-5.0) g/dL Urine Color (Yellow) Urine Appearance (Clear) Urine pH (4.6-8.0) Ur Specific [place] (1.005-1.030) Urine Protein (Negative) Urine Glucose (UA) (Negative) mg/dL Urine Ketones (Negative) Urine Blood (Negative) Urine Nitrite (Negative) Urine Bilirubin (Negative) Urine Urobilinogen (0.2) mg/dL Ur Leukocyte Esterase (Negative) U Hyaline Cast (Auto) (0-2) /LPF Urine Microscopic RBC (0-5) /HPF Urine Microscopic WBC (0-5) /HPF Ur Epithelial Cells (None Seen) /HPF Urine Bacteria (None Seen) /HPF Urine Culture Reflexed (NO) Influenza Type A Ag (NEGATIVE) Influenza Type B Ag (NEGATIVE) RSV (PCR) (NEGATIVE) SARS-CoV-2 (PCR) (NEGATIVE) - Radiology Exams Ordered Rad Exams-Entire Visit: Radiology Procedures Category Date Time Status ABDOMEN AND PELVIS W CONTRAST [CT] Stat Exams 01/12/23 11:53 Completed Discharge Exam General Appearance: no apparent distress, alert Neurologic Exam: alert, oriented x 3, cooperative, 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, normal mood/affect, nml cerebellar function Eye Exam: PERRL, EOMI, eyes nml inspection Ears, Nose, Throat Exam: normal ENT inspection Neck Exam: normal inspection, non-tender, supple, full range of motion Respiratory Exam: normal breath sounds, lungs clear Cardiovascular Exam: regular rate/rhythm, normal heart sounds Gastrointestinal/Abdomen Exam: soft, normal bowel sounds, other (no peritoneal signs, rigidity or rebound/guarding) Back Exam: normal range of motion Extremity Exam: normal inspection, normal range of motion Skin Exam: normal color Final Diagnosis/Problem List - Final Discharge Diagnosis/Problem (1) Diverticulitis Current Visit: Yes Status: Acute Assessment & Plan: will discharge on antibiotics Code(s): K57.92 - DVTRCLI OF INTEST, PART UNSP, W/O PERF OR ABSCESS W/O BLEED (2) Bradycardia Current Visit: Yes Status: Acute Assessment & Plan: hold metoprolol until follow up Code(s): R00.1 - BRADYCARDIA, UNSPECIFIED (3) Lytic lesion of bone on x-ray Current Visit: Yes Status: Acute Assessment & Plan: outpatient workup with Dr. Shankar. This finding is likely benign. Code(s): M89.9 - DISORDER OF BONE, UNSPECIFIED (4) Liver lesion, right lobe Current Visit: Yes Status: Acute Assessment & Plan: outpatient workup with Dr. Shankar. Code(s): K76.9 - LIVER DISEASE, UNSPECIFIED Telemedicine Encounter - Telemedicine Encounter Telemedicine Encounter: The entirety of this encounter was performed via Telemedicine" - Discharge Disposition: Home, Self-Care Condition: Stable Prescriptions: New Metronidazole 500 mg [Flagyl 500 MG] 0 mg PO Q8H 8 Days #24 tablet L. Acidophilus/L.bulgaricus [Lactobacillus Tablet] 1 each PO DAILY 14 Days #14 tablet Levofloxacin [Levofloxacin 500 MG Tablet] 500 mg PO DAILY 8 Days #8 tablet Continue Donepezil HCl 10 mg [Aricept 10 MG] 10 mg PO HS Famotidine 20 mg [Pepcid 20 MG] 20 mg PO BID Venlafaxine HCl [Effexor] 150 mg PO DAILY Trazodone HCl 50 mg [Desyrel 50 mg] 100 mg PO HS Losartan Potassium 50 mg [Cozaar 50 MG] 50 mg PO BID Simvastatin 20Mg [Zocor 20Mg] 20 mg PO HS Aspirin EC 81 mg [Ecotrin 81 mg] 81 mg PO HS Amlodipine Besylate 5 mg [Norvasc 5 mg] 10 mg PO HS Discontinued Metoprolol Succinate 50 mg [Toprol Xl 50 MG] 50 mg PO DAILY Instructions: Low Fiber Diet Follow up with: LEILA SHANKAR MD [Primary Care Provider] -
[2023-01-13 12:14] VITALS: BP 128/63; O2SAT 98
== END 2023-01-13 13:15 | disposition home or self-care (01) ==
LOC: ED 10:18 → MED SURG 15:44
PROVIDERS: ADMIT Internal Medicine; ATTEND Internal Medicine
DX: K57.92 Diverticulitis of intestine, part unspecified, without perforation or abscess without bleeding (principal); R00.1 Bradycardia, unspecified; M89.9 Disorder of bone, unspecified; K76.9 Liver disease, unspecified; I25.10 Atherosclerotic heart disease of native coronary artery without angina pectoris; E78.5 Hyperlipidemia, unspecified; I10 Essential (primary) hypertension; Z79.899 Other long term (current) drug therapy; Z20.828 Contact with and (suspected) exposure to other viral communicable diseases; Z95.1 Presence of aortocoronary bypass graft
CPT/HCPCS: 0241U; 36415; 74177; 80053; 81001; 82150; 83605; 83735; 84484; 85025; 93005; 96360; 96361; 96365; 96367; 96372; 96374; 96375; 99285; 93268; J1650; J1956; J2405; Q3014; A9270-GY; G0378

== ENCOUNTER 2023-01-20 09:10 | Emergency (ER) | payer MEDICARE, BC ==
[2023-01-20 09:30] VITALS: O2SAT 96
[2023-01-20] MEDS ORDERED: TORAdol 30 mg Injection IM ONE (09:49)
[2023-01-20] MEDS ORDERED: TORAdol 30 mg Injection ONE (09:52)
--- NOTE | 2023-01-20 10:09 | XRAY ---
Indication: Pain Comparison: None 3 view right hand demonstrates osteopenia, moderate/advanced degenerative changes all IP joints, minimal/mild degenerative changes all MCP joints, moderate/advanced degenerative changes 1st metacarpal multangular scaphoid articulation, and radial ulnar carpal degenerative chondrocalcinosis. No other bony, articular, or soft tissue abnormalities. Impression: Nonacute right hand with chronic features.
[2023-01-20 10:26] VITALS: BP 145/90
--- NOTE | 2023-01-20 10:44 | ERPHSYRPT ---
- History of Present Illness Time Seen by Provider: 01/20/23 09:20 Source: patient Exam Limitations: no limitations Patient Subjective Stated Complaint: Pt reports she was recently in the hospital approx one week ago when she started having pain along right wrist where the IV was; pain continued after discharge and approx 2 days ago it started swelling and worsened over night. Pt reports the IV did not infiltrate that was placed during hospital stay last week. Triage Nursing Assessment: Pt alert and oriented x3. No apparent respiratory distress. Ambulated to ED cot without difficulty. Skin w/p/d. Accompanied by . Right hand and wrist swollen, warm to the touch, painful, limited range of motion. Denies any numbness or tingling. Physician History: Patient is a 77-year-old female presents to our ED for evaluation of right wrist pain. Patient's pain started after an IV infiltrated in her right hand during a hospital stay 1 week ago. patient was diagnosed with diverticulitis and was started on Levaquin. Patient currently on Levaquin. She has 2 days of Levaquin left. Patient has been experiencing wrist discomfort since her infiltration. No trauma. No fever. No nausea vomiting or diaphoresis. Infection is unlikely due to the fact that patient currently on antibiotic. It is more likely patient experiencing a phlebitis. at bedside. They voiced no other complaints or concerns at this time. Portions of this note were created with voice recognition technology. There may be grammatical, spelling, punctuation or sound alike errors Timing/Duration: day(s) Severity: moderate (1 week) Modifying Factors: Improves With: nothing Associated Symptoms: denies symptoms Allergies/Adverse Reactions: tetracycline [Tetracycline] Allergy (Intermediate, Verified 01/20/23 09:24) ITCH, BURN latex Allergy (Verified 01/20/23 09:24) Rash Home Medications: Donepezil HCl 10 mg [Aricept 10 MG] 10 mg PO HS 06/05/17 [History] Famotidine 20 mg [Pepcid 20 MG] 20 mg PO BID 06/05/17 [History] Venlafaxine HCl [Effexor] 150 mg PO DAILY 06/05/17 [History] Losartan Potassium 50 mg [Cozaar 50 MG] 50 mg PO BID 03/17/22 [History] Trazodone HCl 50 mg [Desyrel 50 mg] 100 mg PO HS 03/17/22 [History] Simvastatin 20Mg [Zocor 20Mg] 20 mg PO HS 12/30/22 [History] Amlodipine Besylate 5 mg [Norvasc 5 mg] 10 mg PO HS 01/12/23 [History] Aspirin EC 81 mg [Ecotrin 81 mg] 81 mg PO HS 01/12/23 [History] Hx Tetanus, Diphtheria Vaccination/Date Given: No Hx Influenza Vaccination/Date Given: Yes Hx Pneumococcal Vaccination/Date Given: Yes Travel Risk - International Travel Have you traveled outside of the country in past 3 weeks: No - Coronavirus Screening Are you exhibiting any of the following symptoms?: No Close contact with a COVID-19 positive Pt in past 14-21 Days: No - Vaccine Status Have you recieved a Covid-19 vaccination: Yes Impersonator Character: Moderna - Vaccination Dates Date of 2cond Vaccination (if applicable): 2020 - Review of Systems Constitutional: No Symptoms, No Fever, No Chills Eyes: No Symptoms Ears, Nose, & Throat: No Symptoms Respiratory: No Symptoms, No Cough, No Dyspnea Cardiac: No Symptoms, No Chest Pain, No Edema, No Syncope Abdominal/Gastrointestinal: No Symptoms, No Abdominal Pain, No Nausea, No Vomiting, No Diarrhea Genitourinary Symptoms: No Symptoms, No Dysuria Musculoskeletal: No Symptoms, No Back Pain, No Neck Pain Skin: No Symptoms, No Rash Neurological: No Symptoms, No Dizziness, No Focal Weakness, No Sensory Changes Psychological: No Symptoms Endocrine: No Symptoms Hematologic/Lymphatic: No Symptoms Immunological/Allergic: No Symptoms All Other Systems: Reviewed and Negative - Past Medical History Pertinent Past Medical History: Yes Neurological History: No Pertinent History ENT History: Cataracts Cardiac History: Coronary Artery Disease, High Cholesterol, Hypertension Respiratory History: No Pertinent History Endocrine Medical History: No Pertinent History Musculoskeletal History: No Pertinent History GI Medical History: GERD History: No Pertinent History Psycho-Social History: Anxiety Female Reproductive Disorders: No Pertinent History, Menstrual Problems - Past Surgical History Past Surgical History: Yes Neuro Surgical History: No Pertinent History Cardiac: CABG Respiratory: No Pertinent History Gastrointestinal: No Pertinent History Genitourinary: No Pertinent History Musculoskeletal: Joint Replacement Female Surgical History: Hysterectomy Other Surgical History: LT KNEE REPLACEMENT, CARPEL TUNNEL - Social History Smoking Status: Never smoker Exposure to second hand smoke: Yes Drug Use: none Patient Lives Alone: No - Nursing Vital Signs Nursing Vital Signs: Initial Vital Signs Temperature 98.8 F 01/20/23 09:13 Pulse Rate 75 01/20/23 09:13 Respiratory Rate 17 01/20/23 09:13 Blood Pressure 198/122 01/20/23 09:13 O2 Sat by Pulse Oximetry 96 01/20/23 09:13 Pain Scale Pain Intensity 9 - Physical Exam General Appearance: no apparent distress, alert Eye Exam: PERRL/EOMI, eyes nml inspection Ears, Nose, Throat Exam: normal ENT inspection, moist mucous membranes Neck Exam: normal inspection, full range of motion Respiratory Exam: normal breath sounds, airway intact, No respiratory distress Cardiovascular Exam: regular rate/rhythm, normal heart sounds, normal peripheral pulses Gastrointestinal/Abdomen Exam: soft, No tenderness, No mass Back Exam: normal inspection, normal range of motion, No CVA tenderness, No vertebral tenderness Extremity Exam: normal inspection, normal range of motion, pelvis stable Neurologic Exam: alert, oriented x 3, cooperative, normal mood/affect, sensation nml, No motor deficits Skin Exam: normal color, warm, dry, No rash Lymphatic Exam: No adenopathy SpO2 Interpretation: normal SpO2: 96 O2 Delivery: Room Air - Course Nursing assessment & vital signs reviewed: Yes - Radiology Exams Hand X-ray Interpretation: Teleradiologist Report (X-ray right hand reveals degenerative joint changes. No acute bony findings. No soft tissue abnormalities) Ordered Tests: Active Orders 24 hr Category Date Time Status HAND (MINIMUM 3 VIEWS) Stat Exams 01/20/23 10:00 Completed Medication Summary Discontinued Medications Generic Name Dose Route Start Last Admin Trade Name Freq PRN Reason Stop Dose Admin Ketorolac Tromethamine 30 mg 01/20/23 09:49 01/20/23 09:52 Ketorolac Tromethamine 30 Mg/Ml Inj IM 01/20/23 09:50 30 mg STAT ONE Administration Ketorolac Tromethamine Confirm 01/20/23 09:52 Ketorolac Tromethamine 30 Mg/Ml Inj Administered 01/20/23 09:53 Dose 30 mg .ROUTE .STK-MED ONE - Progress Progress: improved Progress Note: Patient is a 77-year-old female presents to our ED for evaluation of right wrist pain that she has been experiencing since her hospital stay after infiltration of an IV. Patient currently on Levaquin. Physical exam reveals tenderness to the dorsal aspect of her hand and wrist. There is increased heat generation at this area as well. Overlying soft tissue intact. No lymphangitis. No axillary or cubital lymphadenopathy. No fever or systemic manifestations. Patient has been treating the involved area with a cold pack. X-ray reveals chronic findings. No soft tissue abnormalities. The involved extremity is neurovascular intact distally. Compartments are soft. Cap refill less than 2 seconds. Patient received Toradol IM for pain control. Patient's involved extremity was placed in a wrist splint for comfort. We contacted office. We arrange for follow-up appointment tomorrow morning at 10:30 AM. Patient states she is unsure if she can make it at that time. We also provided patient with a referral to the orthopedic clinic in the event that she cannot see Dr. Medina. Patient now comfortable. No active pain. at bedside. They voiced no other complaints or concerns at this time. Portions of this note were created with voice recognition technology. There may be grammatical, spelling, punctuation or sound alike errors Complexity of problem addressed is low acute uncomplicated No critical care time Complexity data reviewed and analyzed is moderate. Dr. Baeza independently reviewed the x-rays. Clinical correlation made between x-ray and history and physical exam. Based on these findings a diagnosis and the plan of care was established. Risk of complication and or risk morbidity/mortality of patient management is moderate. A decision had to be made regarding whether or not patient symptomology is an infected joint versus a thrombophlebitis. There is no pain with small arcs of motion. Pain occurred mostly during traction of soft tissue/skin. We will discharge patient home. Plan of care established for shared decision making. No social determinants of health present to impede follow-up. Vital stable. at bedside. They agree with plan of care. They will follow-up with Dr. Shankar tomorrow. Portions of this note were created with voice recognition technology. There may be grammatical, spelling, punctuation or sound alike errors 01/20/23 11:03 Discussed with : [place] Will see patient in: office Counseled pt/family regarding: diagnosis, need for follow-up, rad results - Departure Departure Disposition: Home Clinical Impression: Wrist pain, Phlebitis after infusion Condition: Stable Critical Care Time: No Referrals: LEILA SHANKAR MD [Primary Care Provider] - Follow up/PCP as directed Additional Instructions: Discharge/Care Plan POLLY ALLEN was seen on 01/20/23 in the Emergency Room. The patient was counseled regarding Diagnosis,Lab results, Imaging studies, need for follow up and when to return to the Emergency Room. Prescriptions given: Discharge Note I have spoken with the patient and/or caregivers. I have explained the patient's condition, diagnosis and treatment plan based on the information available to me at this time. I have answered the patient's and/or caregiver's questions and addressed any concerns. The patient and/or caregivers have as good understanding of the patient's diagnosis, condition and treatment plan as can be expected at this point. The vital signs have been stable. The patient's condition is stable and appropriate for discharge from the emergency department. The patient will pursue further outpatient evaluation with the primary care physician or other designated or consulting physician as outlined in the discharge instructions. The patient and/or caregivers are agreeable to this plan of care and follow-up instructions have been explained in detail. The patient and/or caregivers have received these instruction. The patient/and or caregivers are aware that any significant change in condition or worsening of symptoms should prompt an immediate return to this or the closest emergency department or call 911. Outpatient Orders: Ortho Referral Time Frame: 1 Day, Facility: [facility]. Hosp, Location: [facility]
[2023-01-20 11:07] VITALS: PULSE 64
== END 2023-01-20 11:07 | disposition home or self-care (01) ==
LOC: ED 09:10
DX: M25.531 Pain in right wrist (principal); T80.1XXA Vascular complications following infusion, transfusion and therapeutic injection, initial encounter; I80.8 Phlebitis and thrombophlebitis of other sites; E78.5 Hyperlipidemia, unspecified; I10 Essential (primary) hypertension; Z79.899 Other long term (current) drug therapy
CPT/HCPCS: 73130; 96372; 99283; J1885; L3908